=== PATIENT | male | born 1945 | race Caucasian/White ===

== ENCOUNTER 2017-11-03 08:18 | Inpatient (IN) | payer MEDICARE, OTHER ==
[2017-11-03] MEDS ORDERED: Labetalol HCl 100 MG/20 ML VIAL ONE (08:37)
[2017-11-03] MEDS ORDERED: Fentanyl 100 MCG/2 ML VIAL ONE (08:51)
[2017-11-03] MEDS ORDERED: niCARdipine 20MG in NaCl 200 ML BAG IVPB PRN (09:47)
[2017-11-03] MEDS ORDERED: Mag-Al 1200 mg/1200 mg/30 ML UDCUP PO PRN (09:47)
[2017-11-03] MEDS ORDERED: Milk Of Magnesia 30 ML UDCUP PO PRN (09:47)
[2017-11-03] MEDS ORDERED: Labetalol HCl 100 MG/20 ML VIAL SLOW IVP PRN (09:47)
[2017-11-03] MEDS ORDERED: Bisacodyl 10 MG SUPP PR PRN (09:47)
[2017-11-03] MEDS ORDERED: Acetaminophen 325 MG TAB PO PRN (09:47)
--- NOTE | 2017-11-03 09:50 | PRG ---
DATE OF SERVICE: 11/03/2017 Mr. Gonzalez is a 72-year-old gentleman that presented to an outside facility early in the morning wit h concerns for dizziness. In the several hours that followed, he became densely hemiparetic on the l eft side with slurred speech. 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 I consulted with the ER and advised t- PA administration. I also advised transfer to [facility] for mechanical thrombectomy. Upon arrival to the [facility] he went straight to the microbiology lab assistant. I examined him there prior to any procedure. He had a dense left hemiparesis and he was completely unable to speak. He could understand speech and follow commands. He had good strength on the right side. The patient underwen t angiography and we were moving forth with mechanical thrombectomy and subsequent injections reveale d a clearance of the basilar artery with filling of both posterior cerebral arteries and the left sup erior cerebellar artery. The plan will be admission to the ICU with stroke risk factor stratificatio n and likely inpatient rehab.
[2017-11-03] MEDS ORDERED: Artificial Tears 18 DROP/0.9 ML EA EYE PRN (10:49)
[2017-11-03] MEDS ORDERED: Eucerin (Mineral Oil/Petrolatum,White) 30 gm Jar TOP PRN (10:49)
[2017-11-03] MEDS ORDERED: Sodium Chloride 0.65% Nasal 44 ML BOT EA NARE PRN (10:49)
[2017-11-03] MEDS ORDERED: Chloraseptic Spray 180 ml Bottle PO PRN (10:49)
[2017-11-03] MEDS ORDERED: Ondansetron HCl/PF 4 MG/2 ML Vial IVP PRN (10:49)
[2017-11-03] MEDS ORDERED: Acetaminophen 650 MG Suppository PR PRN (10:49)
--- NOTE | 2017-11-03 11:24 | CON ---
DATE OF CONSULTATION: 11/03/2017 PRIMARY CARE PHYSICIAN: [facility] call admission. REASON FOR ADMISSION: Acute CVA status post tPA and JORGE procedure. HISTORY OF PRESENT ILLNESS: A 72-year-old male with a history of paroxysmal atrial fibrillation, hypertension, and dyslipidemia who was initially taken to [facility] last night around 10:30 p.m. with complaint of dizziness. The patient was completely fine. Around 10:00 p.m., he was feeling all of suddenly dizziness and had episode of vomiting. He was feeling everything was spinning. Symptoms were getting worse with movement. There was nothing relieving factor. Subsequently, he was taken to [facility] where he was observed. He had CT brain which was normal. He was hemodynamically stable and he did not have any obvious neurological deficit. There, he was given meclizine, IV fluid, Toradol 15 mg, Zofran 4 mg, aspirin 325 mg, and he was about to be discharged, but at that time, the patient's family member noticed that he was not moving his left side and he was having facial droop and that is why CT angiography was done. Stroke alert was initiated and CT angiography of head with IV contrast showed occlusion of the basilar artery. It is unclear whether this patient was given tPA at [facility] or not, but subsequently Dr. Juan Manuel Piña advised him to transfer to our hospital for mechanical thrombectomy. I am seeing this patient after mechanical thrombectomy. The patient is doing very well. Family member present at bedside and they report that his speech is little bit improved. His weakness on the left side is also improving. Currently, patient denies any headache. He feels uncomfortable in his left leg because of sheath. He denies any chest pain, palpitations or loss of consciousness. He denies any fever or chills. Patient lately had diarrhea and that is why he took Pepto-Bismol and after that he had black bowel movement yesterday. His diarrhea almost improved. He denies any UTI symptoms. He denies any flu-like symptoms. He denies any headache at this point. The patient had several years ago TIA type of symptoms. Patient also has paroxysmal atrial fibrillation and he is taking sotalol, but he is no longer taking any blood thinner medication. ALLERGIES: PENICILLIN and LATEX. CURRENT HOME MEDICATIONS: Flonase nasal spray b.i.d., cilostazol 100 mg p.o. daily, sotalol 80 mg 1.5 tablet twice daily, gabapentin 100 mg p.o. twice daily , lovastatin 20 mg p.o. at bedtime, triamterene/hydrochlorothiazide 37.5/25 one capsule p.o. daily, allopurinol 300 mg p.o. daily, hydroxyzine 25 mg p.o. at bedtime p.r.n., Protonix 40 mg p.o. daily. PAST MEDICAL HISTORY: History of TIA, dyslipidemia, hypertension, gastroesophageal reflux disease, gout, paroxysmal atrial fibrillation, and chronic low back pain. PAST SURGICAL HISTORY: Cataract surgery, but no major surgery. PAST PSYCHIATRIC HISTORY: Reviewed and negative. SOCIAL HISTORY: Patient is and lives at home. No history of tobacco, alcohol or illicit drug abuse. FAMILY HISTORY: No strong family history of premature coronary artery disease, stroke or cancer. EMERGENCY ROOM COURSE: [facility] record is completely reviewed. The patient had meclizine 25 mg p.o., IV fluid 2 liters, Toradol 15 mg, Zofran 4 mg, and aspirin 324 mg. REVIEW OF SYSTEMS: The following complete review of systems was negative, unless otherwise mentioned in the HPI or below: Constitutional: Weight loss or gain, ability to conduct usual activities. Skin: Rash, itching. Eyes: Double vision, pain. ENT/Mouth: Nose bleeding, neck stiffness, pain, tenderness. Cardiovascular: Palpitations, dyspnea on exertion, orthopnea. Respiratory: Shortness of breath, wheezing, cough, hemoptysis, fever or night sweats. Gastrointestinal: Poor appetite, abdominal pain, heartburn, nausea, vomiting, constipation, or diarrhea. Genitourinary: Urgency, frequency, dysuria, nocturia. Musculoskeletal: Pain, swelling. Neurologic/Psychiatric: Anxiety, depression. Allergy/Immunologic: Skin rash, bleeding tendency. Please see my HPI for pertinent positive and negative. All other review of systems reviewed and negative except as mentioned in the HPI. PHYSICAL EXAMINATION: VITAL SIGNS: Currently, pulse 56, blood pressure 161/72, respiratory rate 18, saturation 100% on 2 liter oxygen. GENERAL: Patient is currently alert, awake, no obvious acute distress. HEAD: Normocephalic, atraumatic. EYES: Pupils round, reactive to light. Extraocular muscles intact. ENT: Oropharynx within normal limits. Moist mucous membranes. No oral lesions. No pharyngeal erythema, no exudate. NECK: Supple, no JVD. Unable to elicit carotid bruit, no thyromegaly, no carotid bruits. LUNGS: Clear to auscultation without any rhonchi or rales. CARDIAC: S1, S2 regular. No murmur elicited, no gallop, no rub. ABDOMEN: Soft, bowel sounds present, nontender, and nondistended. No organomegaly, no mass, no suprapubic tenderness. BACK: Examination unremarkable, no CVA tenderness. EXTREMITIES: Upper extremity passive movement or joints are normal. Lower extremity passive movements of all joints are normal. No edema, good peripheral pulsation. SKIN: No skin rash. HEMATOLOGICAL SYSTEM: No lymphadenopathy. PSYCHIATRIC: Normal affect. NEUROLOGIC: Patient is currently moving right side upper and lower extremity without any problem and left upper and lower extremity he is also moving. Unfortunately, I am not able to do detailed neurological examination because of patient has sheath on left lower extremity, but his speech is still slurred. Plantar bilateral flexor. Sensation intact. Reflexes symmetrical. SIGNIFICANT LABORATORY DATA AND IMAGING DATA: Blood tests done at [facility]. WBC 12.8, hemoglobin 12.5, platelet 269. CMP: Sodium 139, potassium 4.7, chloride 103, carbon dioxide 28, anion gap 13, glucose 111, BUN 28, creatinine 1.4, protein 7.6, albumin 3.5. AST 31, ALT 27, and alkaline phosphatase 77. Serum osmolality 283. Urinalysis normal. Urine drug screen negative. Troponin 0.02. INR 1.0. Chest x-ray based on my review, no acute cardiopulmonary process. CT brain without contrast based on my review, no acute intracranial process. CT head angiography with contrast showing bibasilar artery occlusion. ASSESSMENT AND PLAN: 1. Acute cerebrovascular accident status post mechanical thrombectomy. The patient had dizziness. Subsequently left upper and lower extremity weakness with slurred speech and facial asymmetry and found with acute cerebrovascular accident. CT angiography of head confirmed occlusion of the basilar artery, status post mechanical thrombectomy. At this point, post-procedure, patient will require Intensive Care Unit admission. Entire Stroke team and Pulmonary team will be consulted. After 24 hours, we will start aspirin. We will continue Cardene drip for better blood pressure control. Lovenox will be started tomorrow for deep venous thrombosis prophylaxis. We will check MRI brain, echocardiography, carotid Doppler. We will check lipid profile, homocysteine. 2. Paroxysmal atrial fibrillation. Currently, patient is in sinus rhythm. The patient is on Betapace. We will resume his home medication while in hospital. We will monitor on telemetry floor. Echocardiography will be obtained. We will also check cardiac enzymes tomorrow. 3. Dyslipidemia. Check lipid profile tomorrow and continue lovastatin equivalent, Lipitor 10 mg p.o. at bedtime. 4. Hypertension. Currently, patient is on Cardene drip. We will use parenteral blood pressure medication including labetalol p.r.n. basis. 5. Allergic rhinitis. We will continue Flonase nasal spray twice daily as needed. 6. History of gout. Currently, patient is on allopurinol 300 mg p.o. daily. We will hold until the patient is cleared by speech. 7. Deep venous thrombosis prophylaxis, sequential compression device boots. 8. Gastrointestinal prophylaxis, Protonix 40 mg IV daily. 9. Code status: The patient is FULL CODE. The patient's is surrogate decision maker. Disposition plan based on clinical course. We are expecting patient's stay in the hospital more than 2 midnights. Plan of care discussed with the patient and family member at bedside in ICU. We will keep him n.p.o. until speech clears and then we will start diet as tolerated. Once the diet started then we will change to oral medication. Most likely within 24 hours, we will transfer him to the stroke floor and eventually he will need rehab placement. MOY
--- NOTE | 2017-11-03 12:25 | ULT ---
BILATERAL CAROTID DUPLEX ULTRASOUND: DATE: 11/03/17 HISTORY: CVA. TECHNIQUE: Branham scale ultrasound with color flow and spectral Doppler imaging of the extracranial carotid artery systems performed bilaterally. FINDINGS: A small amount of plaque is seen in the carotid bulbs. The peak systolic velocity in the right ICA measures 117 cm/second with a systolic ratio of 1.57. The peak systolic velocity in the left ICA measures 102 cm/second with a systolic ratio of 1.08. Flow in both vertebral arteries remains antegrade. IMPRESSION: No evidence of hemodynamically significant stenosis. POS: ÁNGEL
[2017-11-03] MEDS: Sodium Chloride 0.9% 1,000 ML IV SCH ×2 (12:27→21:12)
--- NOTE | 2017-11-03 13:23 | CCL ---
RADIOLOGY PROCEDURE NOTE: Date: 11/03/17 SURGEON: Carlitos Zambrano M.D. CREW TRUCK DRIVER: None. INDICATION: Ischemic stroke. PROCEDURE: Basilar artery occlusion. ANESTHESIA: Local. TECHNIQUE: The patient was brought into the angiogram suite and placed on the table in the supine position. Both groins were prepped and draped in the usual sterile fashion. 1% lidocaine was injected into the righ t groin. A 5 Fijian micropuncture set was then used to gain access to the right common femoral artery . Due to the tortuosity of the right-sided femoral vessel, we could not gain access to the aorta. We withdrew the 5 Fijian micropuncture set, applied pressure, and redirected our attention to the left groin where it was injected with 1% lidocaine. A 5 Fijian micropuncture set was used to gain access t o the left common femoral artery. Using the Seldinger technique, the needle was removed and an 8 Fren ch sheath was placed. An 8 Fijian concentric guide catheter was passed over a long 5 Fijian BIO Wellnessti c catheter, which was passed over an 0.035 angled Glidewire. We were able to access the left vertebra l artery, where AP and lateral angiogram revealed the presence of a mid to distal basilar artery occl usion. A Trevo device and microcatheter and microguidewire were then loaded through the guide cathet er and placed within the basilar artery. A subsequent injection revealed resolution of the basilar oc clusion with distal filling of both posterior cerebral arteries as well as the left superior cerebell ar artery. All catheters were then removed. Hemostasis was maintained with pressure on the right leander in and the catheter was sewn in on the left. The procedure came to an end without complication.
--- NOTE | 2017-11-03 14:05 | CON ---
DATE OF CONSULTATION: 11/03/2017 He is a 72-year-old gentleman who was brought in from [facility] after he sustained weakness this morning. He earlier had had some dizziness and weakness of the left side. They contacted Dr. Zambrano, who felt he was having acute cerebrovascular accident and recommended giving him t-PA and gordon sfer to [facility]. He has undergone an emergency cath by Dr. Zambrano. Please review his note, but apparently at the time of angiography his basilar artery looked good with both posterior cerebral arteries, the left superio r cerebral artery good perfusion. He was noted to have initially a dense left hemiparesis with slurred speech to which he has had some improvement. His is at the bedside to which we are getting adequate history, who states that th e patient does not smoke, does not drink. He has had a previous cerebrovascular accident. PAST MEDICAL HISTORY: History of previous transient ischemic attack, dyslipidemia, hypertension, atr ial fibrillation, coronary artery disease. He sees a electrolysis engineer at [facility]. PAST SURGICAL HISTORY: Cataracts. SOCIAL/FAMILY HISTORY: Otherwise unremarkable. REVIEW OF SYSTEMS: Ten point negative. PHYSICAL EXAMINATION: GENERAL: Awake, alert, responsive. VITAL SIGNS: Blood pressure is slightly elevated at 171/70, his sats are 100%, pulse 70, respiratory 18. CHEST: Chest revealed decreased breath sounds. No wheezing. CARDIAC: Normal S1, S2. No gallops. ABDOMEN: Soft, no masses. LABORATORY: White count 9,000, H&H 13 and 40. Chemistry profile shows BUN and creatinine are normal . Blood sugar was 95. Thyroid function normal. IMPRESSION: 1. Cerebrovascular accident, emergency angiography. 2. Left-sided weakness, improving. 3. Previous transient ischemic attack. 4. Coronary artery disease. PLAN: I agree with aspirin and supportive care. Blood pressure control as per Neurosurgery. I will follow while in the ICU. At this stage I reviewed all of the x-rays and reports personally including the imaging studies and r eport. Nothing additional to offer. PT and supportive care. This is a consultation note 70 minutes, of which 50% of the time was spent at the bedside with direct patient care. Incidentally to note the patient's home medication includes Cilostazol 100 mg, Sotalol 80 mg tablet, gabapentin 100, lovastatin 20, triamterene, and allopurinol.
[2017-11-03] MEDS ORDERED: Prevnar 13-Val Conj/PF 0.5 ML SYRINGE IM ONE (15:15)
[2017-11-03] MEDS ORDERED: Iopamidol 370 76% 50 ML VIAL FS ONE (17:03)
[2017-11-03] MEDS ORDERED: Iopamidol 370 76% 100 ML VIAL ONE (17:03)
[2017-11-04 03:56] LABS: #Basophils 0.1 thou/uL (0.0-0.2); #Eosinphils 0.2 thou/uL (0.0-0.7); #Lymphocytes 1.9 thou/uL (1.20-3.40); #Monocytes 1.4 thou/uL (0.11-0.59); #Neutrophils 10.4 thou/uL (1.40-6.50); %Basophils 0.4 % (0.0-1.0); %Eosinophils 1.5 % (0.0-10.0); %Lymphocytes 13.6 % (21.0-51.0); %Monocytes 9.9 % (0.0-10.0); %Neutrophils 74.6 % (42.0-75.0); Hemoglobin 11.7 g/dL (14.0-18.0); Mean Corpuscular HGB CONC 32.2 g/dL (32.0-36.0); Mean Corpuscular Hemoglobin 30.5 pg (27.0-31.0); Mean Corpuscular Volume 94.7 fl (80.0-94.0); Mean Platelet Volume 8.7 fL (7.4-10.4); Platelet Count 196 thou/uL (130-400); RBC Distribution Width 15.6 % (11.5-14.5); Red Blood Cell (RBC) Count 3.84 mill/uL (4.70-6.10)
[2017-11-04 04:02] LABS: INR-International Normal Ratio 1.2; PTT 26.9 SEC (22.9-36.1); Prothrombin Time 15.5 SEC (12.0-14.7)
[2017-11-04 04:11] LABS: ALT (SGPT) 31 U/L (8-55); AST (SGOT) 48 U/L (5-34); Albumin 3.4 g/dL (3.4-4.8); Alkaline Phosphatase 68 U/L (40-150); Anion Gap 12 mmol/L (10-20); BUN (Urea Nitrogen) 18 mg/dL (8.4-25.7); Bilirubin, Total 0.9 mg/dL (0.2-1.2); Calc. Creatinine Clearance 74 mL/min (70-130); Calcium 8.8 mg/dL (7.8-10.44); Carbon Dioxide 23 mmol/L (23-31); Cardiac Risk 3.4 (Less than 4.5); Chloride 111 mmol/L (98-107); Cholesterol 133 mg/dl (< 200 Desired); Estimated GFR-MDRD 74; Globulin 2.9 g/dL (2.4-3.5); Glucose 77 mg/dL (80-115); HDL Cholesterol 39 mg/dL (>60 Neg Risk); LDL Cholesterol, Calculated 69 mg/dL; Potassium 4.2 mmol/L (3.5-5.1); Protein, Total 6.3 g/dL (5.8-8.1); Sodium 142 mmol/L (136-145); Triglycerides 124 mg/dL (Less than 150)
--- NOTE | 2017-11-04 09:28 | CT ---
PRELIMINARY REPORT/[facility]/EMERGENCY AFTER HOURS PROCEDURE: EXAM: CT Head Without Intravenous Contrast CLINICAL HISTORY: 72 years old, male; Condition or disease; Other: CVA; Patient HX: Eval for CVA TECHNIQUE: Axial computed tomography images of the head/brain without intravenous contrast. COMPARISON: No relevant prior studies available. FINDINGS: No definite acute skull fracture. Included paranasal sinuses are essentially clear. No acute intracranial hemorrhage or mass effect. Ventricle size is normal for age. No definite acute infarct by CT. MRI could be more sensitive/specific for an acute infarct if clinically indicated. IMPRESSION: No acute intracranial bleed or mass effect. No definite acute infarct by CT, see above. Thank you for allowing us to participate in the care of your patient. Dictated and Authenticated by: John Franz MD 11/04/2017 4:33 AM Central Time ([place] & [place]) FINAL REPORT EMERGENCY AFTER HOURS NONCONTRAST CT HEAD: Date: 11/04/17 HISTORY: CVA. COMPARISON: None available. IMPRESSION: 1. No acute intracranial abnormalities demonstrated. 2. Minimal chronic small vessel ischemic changes. 3. Mild cerebral volume loss. 4. Mild sinus disease. Findings are in agreement with the preliminary report by Amadou. POS: ÁNGEL
[2017-11-04] MEDS: Enoxaparin Sodium 30 MG/0.3 ML SYRINGE SC SCH (10:11)
[2017-11-04] MEDS: Pantoprazole 40 MG VIAL IVP SCH (10:18)
[2017-11-04] MEDS: Sodium Chloride 0.9% 1,000 ML IV SCH ×2 (11:23→21:21)
--- NOTE | 2017-11-04 11:57 | PRG ---
DATE OF SERVICE: 11/04/2017 SUBJECTIVE: Al Gonzalez is awake, alert, responsive. PHYSICAL EXAMINATION: VITAL SIGNS: Blood pressure is slightly elevated at 131/58, pulse 60, respiratory rate 18. NEUROLOGIC: His weakness on his right side improved somewhat. CHEST: Decreased breath sounds, no wheezing. CARDIAC: Normal S1, S2, no gallops. ABDOMEN: Soft. ASSESSMENT: Acute cerebrovascular accident. Emergency tPA. PLAN: Continue PT and supportive care. Blood pressure control is outlined. Continue home medication. We will follow while in the ICU.
--- NOTE | 2017-11-04 13:04 | MRI ---
MRI BRAIN NONCONTRAST: DATE: 11/04/17 TIME: 1103 HOURS HISTORY: 72-year-old male with acute CVA: Stroke, basilar artery occlusion. COMPARISON: No prior MRI's of brain. FINDINGS: There are several small foci of strongly restricted diffusion, representing acute infarctions, in the following locations: 1.5 x 1 cm lesion at the posterior aspect of the left cerebellar hemisphere, 0 .8 x 0.5 cm small lesion at the superior anterior aspect of the left cerebellar hemisphere near the t entorium, 1 x 1 cm lesion in the anteromedial aspect of the right thalamus, adjacent 1.5 x 0.5 cm les ion more posterolaterally in the right thalamus, and 1.5 x 0.3 cm thin strip in right occipital primo x close to the right lateral ventricle. In addition, there is heterogeneous, widely distributed, mildly restricted diffusion at the upper hayley s, near the pontomesencephalic junction. All of these lesions are associated with moderately hyperintense T2 signal (best visualized on the FL AIR sequence). There are numerous tiny foci of T2 hyperintensity in the arellano radiata and centrum semiovale, consis tent with mild chronic ischemic white matter changes due to microvascular atherosclerosis. Flow-voids are grossly maintained in the major arteries of the [place] of [place], including the basilar artery. There is no evidence of recent or remote intra-axial hemorrhage. No mass effect, midline shift, or ex tra-axial fluid collection. Mild to moderate dilation of lateral and third ventricles, probably due t o diffuse brain parenchymal volume loss, not unusual for age. No extra-axial fluid collection. IMPRESSION: 1. Multiple foci of small acute or subacute infarctions in posterior circulation territory, includin g brainstem (upper jian), left cerebellum, right thalamus, and right occipital lobe. 2. No acute hemorrhage or mass effect. MOSHE Paulson POS: ÁNGEL
[2017-11-04] MEDS: Amiodarone HCl 450 MG, Admixture Fee 1 EACH in Dextrose 5% in Water 250 ML IVPB SCH ×6 (13:15→21:22)
--- NOTE | 2017-11-04 15:17 | CON ---
DATE OF CONSULTATION: 11/04/2017 NEUROLOGY CONSULTATION CONSULTING PHYSICIAN: Hospitalist Service. IMPRESSION: 1. Multifocal posterior circulation infarct with remarkably good recovery. 2. Hypertension. 3. History of cardiac arrhythmia. 4. Aspirin failure. PLAN: 1. Add Plavix. 2. PT and OT evaluations and decide whether rehab transfer is necessary. Mr. Gonzalez is a 72-year-old gentleman with the above noted medical history. He developed acute onse t of headache, vertigo and left-sided weakness after being evaluated at the [facility]. He was subsequently brought to the [facility] where he was evaluated by Dr. Zambrano and underwent cat heterization. He now is back in the ICU and is recovering. He reports there is slight headache and only minimal dizziness at this point. Denies any feelings of lateralized weakness or numbness. He h as been in normal sinus rhythm. His MRI of the brain showed areas of acute ischemia involving the le ft cerebellum, pontine region, right thalamus and right occipital lobe. Carotid ultrasound did not s how any extracranial stenosis. His echocardiogram showed a normal ejection fraction. Patient had be en taking a cholesterol medication and aspirin prior to this event. PAST MEDICAL HISTORY: As listed above. ALLERGIES: None reported. SOCIAL HISTORY: No tobacco use. FAMILY HISTORY: Noncontributory. REVIEW OF SYSTEMS: Positive for gait instability and numbness of the feet. PHYSICAL EXAMINATION: GENERAL: He is a well-nourished elderly gentleman lying in bed in no distress. VITAL SIGNS: Pulse 128, blood pressure 126/81, saturation 93%. HEENT: Pupils equal and reactive. Conjunctivae clear. Oropharynx clear. Cranium is normocephalic, atraumatic. NECK: Supple. EXTREMITIES: No cyanosis or edema. NEUROLOGIC: He is alert and cooperative. His speech is fluent and clear. Cranial nerve exam did no t show any asymmetries or significant nystagmus. Motor exam showed equal recycling worker strength. His finger to nose movements were fairly smooth with only slight dysmetria on the left. Gait was not testable. Plantar responses were downgoing. Sensation was subjectively intact to light touch. SUMMARY: This is a 72-year-old gentleman with multifocal ischemic injury in the posterior circulatio n. He is doing remarkably well. Would add Plavix for his long-term management and can be assessed f or possible rehabilitation.
[2017-11-04] MEDS: Aspirin 325 mg Enteric Coated Tablet PO SCH (17:19)
[2017-11-04] MEDS: Aspirin 300 MG Suppository PR SCH (18:01)
--- NOTE | 2017-11-04 18:13 | CON ---
DATE OF CONSULTATION: 11/04/2017 CARDIOLOGY CONSULTATION REASON FOR CONSULTATION: AFib, RVR. HISTORY OF PRESENT ILLNESS: Mr. Gonzalez is a pleasant 72-year-old gentleman who comes to the ospital for stroke. He went to the [facility] and he was diagnosed with an acute CVA. He was given tPA and transferred over to [facility] for stroke alert. 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 He was brought into the catheterization lab immediately after tra nsferring. Dr. Zambrano took images of the basilar artery and it showed clearance of the artery with fi lling of both posterior cerebral arteries and left superior cerebellar artery. He was transferred to the ICU. He has a history of paroxysmal atrial fibrillation. He had been on blood thinners for sev eral years, about 2-1/2 years and about 5 or 6 months ago this was discontinued. I am not sure if th is was due to cost. He was followed by Dr. Siegel at that time. Currently, he is in the ICU recover ing. He had his sheath pulled recently from the left groin and he now converted into atrial fibrilla tion with rapid ventricular response, heart rate in the 160s, so Cardiology has been consulted for th is. PAST MEDICAL HISTORY: 1. Previous TIAs in the past. 2. Hyperlipidemia. 3. Hypertension. 4. Paroxysmal atrial fibrillation. 5. Coronary artery disease. Unclear to what extent. 6. Gout. 7. Gastroesophageal reflux disease. 8. Chronic low back pain. PAST SURGICAL HISTORY: Cataract surgery. SOCIAL HISTORY: No alcohol, tobacco or drugs. FAMILY HISTORY: Noncontributory. REVIEW OF SYSTEMS: A 12-point review of systems was done and it is all negative unless stated in the history of present illness. OUTPATIENT MEDICATIONS: Include, 1. Flonase. 2. Cilostazol. 3. Sotalol 80 mg 1-1/2 tablets b.i.d. 4. Gabapentin 100 mg twice a day. 5. Lovastatin 20 mg p.o. daily. 6. Triamterene/hydrochlorothiazide 37.5/25 daily. 7. Allopurinol. 8. Hydroxyzine. 9. Protonix. PHYSICAL EXAMINATION: VITAL SIGNS: Temperature 100.1, pulse 85-160, satting 96% on 2 liters, blood pressure 127/78. GENERAL: Awake, alert, difficult to assess orientation due to difficulty with speech, in no distress . HEENT: Normocephalic, atraumatic. NECK: Supple. LUNGS: Clear. CARDIOVASCULAR: Irregular, irregular. Heart rate in the 120s on my evaluation. ABDOMEN: Soft, positive bowel sounds. EXTREMITIES: Trace edema. SKIN: Warm and dry. LABORATORY WORK: Shows a white count of 14, hemoglobin of 11, hematocrit of 36, platelet count of 19 6. Coags were reviewed. Chemistries were reviewed, which are normal. Triglycerides of 124, cholest josie total of 133, LDL of 69, HDL of 39. Homocysteine level of 7.5. EKG was reviewed, AFib with RVR. ASSESSMENT AND PLAN: 1. Acute posterior circulation cerebrovascular accident. 2. Paroxysmal atrial fibrillation, currently in rapid ventricular response. 3. Normal left ventricular function. 4. Grade I diastolic dysfunction. PLAN: 1. Given his history of atrial fibrillation, TIAs and now with an acute CVA, we have to assume that this is an embolic stroke. I would recommend full anticoagulation with either warfarin or any of the new NOACs. I will discuss with Neurosurgery as well as Neurology as to the timing of this as he had tPA recently and he has an acute event. His CHADS-VASc score would be 4 given his stroke, hypertens ion and age. 2. We will start him on amiodarone drip to rate control his atrial fibrillation. 3. Would stop Plavix if we were to start full anticoagulation. Thank you for letting us to participate in the care of your patient. We will continue to follow.
--- NOTE | 2017-11-04 20:58 | PDOC.PN ---
- Subjective Encounter Start Date: 11/04/17 Encounter Start Time: 12:00 Patient gone for MRI. - Objective Resuscitation Status: Resuscitation Status FULL:Full Resuscitation MAR Reviewed: Yes Vital Signs & Weight: Vital Signs (12 hours) Temp 11/04/17 16:00 100.1 F H 11/04/17 12:00 99.8 F H Weight Admit Weight 167 lb Weight 167 lb 5.294 oz Most Recent Monitor Data Heart Rate from ECG 81 NIBP 128/78 NIBP BP-Mean 92 Respiration from ECG 31 SpO2 96 I&O: 11/03/17 11/04/17 11/05/17 06:59 06:59 06:59 Intake Total 1644 951 Output Total 1335 871 Balance 309 80 Result Diagrams: 11/04/17 03:42 11/04/17 03:42 EKG Reviewed by me: Yes (Afib) Dx/Plan - Plan DVT proph w/lovenox, DVT proph w/SCDs IMPRESSION: 1. Post circulation CVA s/p TPA 2. HTN 3. Par Afib 4. Dyslipidemia 5. GERD PLAN: * Await MRI. * Consult Cardio/Neuro * AM labs * Cont to monitor Review of Systems - Medications/Allergies Allergies/Adverse Reactions: Allergies Allergy/AdvReac Type Severity Reaction Status Date / Time No Known Allergies Allergy Verified 11/03/17 18:19 Medications: Current Medications Acetaminophen (Tylenol) 650 mg PO Q6H PRN PRN Reason: Headache/Fever or Mild Pain Acetaminophen (Tylenol) 650 mg [place] Q4H PRN PRN Reason: Headache/Fever or Mild Pain Al Hydroxide/Mg Hydroxide (Maalox) 30 ml PO QIDPRN PRN PRN Reason: Dyspepsia Artificial Tears (Tears Naturale) 0 drop EA EYE PRN PRN PRN Reason: Dry Eyes Aspirin (Ecotrin) 325 mg PO DAILY [facility] Last Admin: 11/04/17 17:19 Dose: Not Given Aspirin (Aspirin) 300 mg [place] DAILY [facility] Last Admin: 11/04/17 18:01 Dose: 300 mg Bisacodyl (Dulcolax) 10 mg [place] DAILYPRN PRN PRN Reason: Constipation Enoxaparin Sodium (Lovenox) 30 mg SC 0900 [facility] Last Admin: 11/04/17 10:11 Dose: 30 mg Sodium Chloride (Normal Saline 0.9%) 1,000 mls @ 80 mls/hr IV .[id number] [facility] Last Admin: 11/04/17 11:23 Dose: 1,000 mls Amiodarone HCl 450 mg/Miscellaneous Medication 1 each/ Dextrose/Water 259 mls @ 0 mls/hr IVPB INF [place]; As Directed PRN Reason: Protocol Last Admin: 11/04/17 13:15 Dose: 259 mls Labetalol HCl (Normodyne) 10 mg SLOW IVP Q2H PRN PRN Reason: SBP > 180 Last Admin: 11/04/17 10:12 Dose: 10 mg Magnesium Hydroxide (Milk Of Magnesium) 30 ml PO BIDPRN PRN PRN Reason: Constipation Mineral Oil/White Petrolatum (Eucerin Cream) 0 gm TOP BIDPRN PRN PRN Reason: Dry Skin Morphine Sulfate (Morphine) 1 mg SLOW IVP Q2H PRN PRN Reason: Moderate Pain (4-6) Morphine Sulfate (Morphine) 2 mg SLOW IVP Q2H PRN PRN Reason: Severe Pain (7-10) Last Admin: 11/03/17 12:48 Dose: 2 mg Nicardipine/Sodium Chloride (Cardene) 0 mg IVPB INF PRN; Protocol PRN Reason: SBP > 180 mmHg Ondansetron HCl (Zofran) 4 mg IVP Q6H PRN PRN Reason: Nausea/Vomiting Pantoprazole Sodium (Protonix) 40 mg IVP DAILY [facility] Last Admin: 11/04/17 10:18 Dose: 40 mg Phenol (Chloraseptic [place] 180 Ml Bot) 0 ml PO PRN PRN PRN Reason: Sore Throat Sodium Chloride ([place] Nasal [place] 0.65%) 0 ml EA NARE QIDPRN PRN PRN Reason: Nasal Congestion
[2017-11-05] MEDS: Aspirin 325 mg Enteric Coated Tablet PO SCH (07:58)
[2017-11-05] MEDS: Pantoprazole 40 MG VIAL IVP SCH (09:11)
[2017-11-05] MEDS: Aspirin 300 MG Suppository PR SCH (09:11)
[2017-11-05] MEDS: Amiodarone HCl 450 MG, Admixture Fee 1 EACH in Dextrose 5% in Water 250 ML IVPB SCH ×3 (09:14)
[2017-11-05] MEDS: Enoxaparin Sodium 30 MG/0.3 ML SYRINGE SC SCH (09:16)
[2017-11-05] MEDS ORDERED: Artificial Tears 18 DROP/0.9 ML EA EYE PRN (11:38)
[2017-11-05] MEDS: Sodium Chloride 0.9% 1,000 ML IV SCH (11:59)
--- NOTE | 2017-11-05 12:43 | PDOC.CTH ---
Cardiology Progress Note - Subjective No new issues or concern. - Objective Vital Signs Temp Pulse Resp Pulse Ox 11/05/17 07:31 98 F 65 23 H 95 11/05/17 07:00 98.3 F 11/05/17 06:59 97 11/05/17 03:00 98 F Admit Weight 167 lb Weight 169 lb 8.568 oz 11/04/17 11/05/17 11/06/17 06:59 06:59 06:59 Intake Total 1644 2251 Output Total 1335 1581 345 Balance 309 670 -345 - Physical Examination General/Neuro: alert & oriented x3, NAD Neck: no JVD present Lungs: CTA, unlabored respirations Heart: other: (Irreg HR 70's. ) Abdomen: NT/ND Extremities: + edema B (1+) - Telemetry Telemetry Rhythm: Afib HR 60-80 - Labs Result Diagrams: 11/04/17 03:42 11/04/17 03:42 - Assessment/Plan 1. Afib RVR, rate controlled. 2. Acute CVA, embolic most likely. PLAN: - I spoe with Dr. Lima and he agrees to start full anticoagulation now. - Will start this afternoon with full dose Lovenox and if he tolerated this will put him on Eliquis terminologist on discharge. - Continue amiodarone drip for now.
--- NOTE | 2017-11-05 16:42 | PRG ---
DATE OF SERVICE: 11/05/2017 Mr. Gonzalez reports he is feeling well today. He has no complaints of headache, nausea, vomiting, di zziness, double vision, lateralized weakness or numbness. PHYSICAL EXAMINATION: He is alert and cooperative. The nurse reports that occasionally he seems to get confused about dislocation, but otherwise has done well through the night. His exam was nonfocal . LABORATORY STUDIES: EKG shows atrial flutter. Given the atrial flutter, I would agree that anticoagulation is needed late this choice up to Cardiol ogahmet.
--- NOTE | 2017-11-05 18:15 | PRG ---
DATE OF SERVICE: 11/05/2017 SUBJECTIVE: This morning, he is awake, alert, and responsive. He is gaining more strength in both u pper extremities. Nurse noted that he was having bouts of apnea at nighttime. An MRI done yesterday shows multiple foci of small acute, subacute infarct in the posterior circulati on including brainstem (upper jian), left cerebellum, right thalamus, and right occipital lobe. OBJECTIVE: VITAL SIGNS: Blood pressure 148/71, sats 90%, respiratory rate 18. CHEST: No wheezing. CARDIAC: Normal S1, S2. No gallops. ABDOMEN: Soft, no masses. LABORATORY DATA: No lab was done today. IMPRESSION: 1. Posterior circulation myocardial infarction with a posterior circulation cerebrovascular accident , left-sided weakness slowly improving. 2. Possibly sleep apnea. 3. Hypertension. PLAN: Continue PT and supportive care. We will follow while in the MICU.
--- NOTE | 2017-11-05 21:30 | PDOC.PN ---
- Subjective Encounter Start Date: 11/05/17 Encounter Start Time: 14:00 Patient seen and examined. No new complaints. No overnight events. No new focal findings - Objective Resuscitation Status: Resuscitation Status FULL:Full Resuscitation MAR Reviewed: Yes Vital Signs & Weight: Vital Signs (12 hours) Temp Pulse Pulse Pulse Resp BP BP 11/05/17 16:06 99.5 F 78 20 11/05/17 12:00 98.3 F 11/05/17 11:05 69 72 154/81 H 138/75 BP Pulse Ox Pulse Ox Pulse Ox 11/05/17 16:06 176/100 H 96 11/05/17 12:00 11/05/17 11:05 97 98 Weight Admit Weight 167 lb Weight 169 lb 8.568 oz Most Recent Monitor Data Heart Rate from ECG 78 NIBP 153/86 NIBP BP-Mean 98 Respiration from ECG 30 SpO2 96 I&O: 11/04/17 11/05/17 11/06/17 06:59 06:59 06:59 Intake Total 1644 2251 1385 Output Total 1335 1581 950 Balance 309 670 435 Result Diagrams: 11/04/17 03:42 11/04/17 03:42 Additional Labs: Accuchecks 11/05/17 11/05/17 11/05/17 12:49 06:07 00:30 POC Glucose 93 76 85 EKG Reviewed by me: Yes (Afib) Phys Exam - Physical Examination Constitutional: NAD Cardiovascular: irregular Dx/Plan - Plan DVT proph w/SCDs IMPRESSION: 1. Post circulation CVA s/p TPA 2. HTN 3. Par Afib with RVR - on Amiodarone drip 4. Dyslipidemia 5. GERD PLAN: * Cardiology/Neuro following * Started on Anticoag Review of Systems - Review of Systems Cardiovascular: negative: chest pain, palpitations, orthopnea, paroxysmal nocturnal dyspnea, edema, light headedness - Medications/Allergies Allergies/Adverse Reactions: Allergies Allergy/AdvReac Type Severity Reaction Status Date / Time No Known Allergies Allergy Verified 11/03/17 18:19 Medications: Current Medications Acetaminophen (Tylenol) 650 mg PO Q6H PRN PRN Reason: Headache/Fever or Mild Pain Acetaminophen (Tylenol) 650 mg ND Q4H PRN PRN Reason: Headache/Fever or Mild Pain Al Hydroxide/Mg Hydroxide (Maalox) 30 ml PO QIDPRN PRN PRN Reason: Dyspepsia Artificial Tears (Tears Naturale) 0 drop EA EYE PRN PRN PRN Reason: Dry Eyes Aspirin (Ecotrin) 325 mg PO DAILY [facility] Last Admin: 11/05/17 07:58 Dose: Not Given Aspirin (Aspirin) 300 mg ND DAILY [facility] Last Admin: 11/05/17 09:11 Dose: 300 mg Bisacodyl (Dulcolax) 10 mg ND DAILYPRN PRN PRN Reason: Constipation Enoxaparin Sodium (Lovenox) 80 mg SC 0900,2100 [facility] Sodium Chloride (Normal Saline 0.9%) 1,000 mls @ 80 mls/hr IV .[id number] [facility] Last Admin: 11/05/17 11:59 Dose: 1,000 mls Amiodarone HCl 450 mg/Miscellaneous Medication 1 each/ Dextrose/Water 259 mls @ 0 mls/hr IVPB INF [place]; As Directed PRN Reason: Protocol Last Admin: 11/05/17 09:14 Dose: 259 mls Labetalol HCl (Normodyne) 10 mg SLOW IVP Q2H PRN PRN Reason: SBP > 180 Last Admin: 11/04/17 10:12 Dose: 10 mg Magnesium Hydroxide (Milk Of Magnesium) 30 ml PO BIDPRN PRN PRN Reason: Constipation Mineral Oil/White Petrolatum (Eucerin Cream) 0 gm TOP BIDPRN PRN PRN Reason: Dry Skin Morphine Sulfate (Morphine) 1 mg SLOW IVP Q2H PRN PRN Reason: Moderate Pain (4-6) Morphine Sulfate (Morphine) 2 mg SLOW IVP Q2H PRN PRN Reason: Severe Pain (7-10) Last Admin: 11/03/17 12:48 Dose: 2 mg Nicardipine/Sodium Chloride (Cardene) 0 mg IVPB INF PRN; Protocol PRN Reason: SBP > 180 mmHg Ondansetron HCl (Zofran) 4 mg IVP Q6H PRN PRN Reason: Nausea/Vomiting Pantoprazole Sodium (Protonix) 40 mg IVP DAILY [facility] Last Admin: 11/05/17 09:11 Dose: 40 mg Phenol (Chloraseptic [place] 180 Ml Bot) 0 ml PO PRN PRN PRN Reason: Sore Throat Sodium Chloride ([place] Nasal [place] 0.65%) 0 ml EA NARE QIDPRN PRN PRN Reason: Nasal Congestion
[2017-11-05] MEDS: Enoxaparin Sodium 80 MG/0.8 ML SYRINGE SC SCH (21:34)
[2017-11-06] MEDS: Sodium Chloride 0.9% 1,000 ML IV SCH ×2 (01:11→12:24)
[2017-11-06] MEDS: Amiodarone HCl 450 MG, Admixture Fee 1 EACH in Dextrose 5% in Water 250 ML IVPB SCH ×3 (04:55)
[2017-11-06 05:54] LABS: Hemoglobin 11.8 g/dL (14.0-18.0); Platelet Count 189 thou/uL (130-400)
[2017-11-06 05:55] LABS: #Eosinphils 0.6 thou/uL (0.0-0.7); #Lymphocytes 2.4 thou/uL (1.20-3.40); #Monocytes 1.4 thou/uL (0.11-0.59); %Basophils 0.3 % (0.0-1.0); %Eosinophils 3.9 % (0.0-10.0); %Lymphocytes 16.4 % (21.0-51.0); %Monocytes 9.9 % (0.0-10.0); %Neutrophils 69.4 % (42.0-75.0); Hemoglobin 11.7 g/dL (14.0-18.0); Mean Corpuscular HGB CONC 32.4 g/dL (32.0-36.0); Mean Corpuscular Hemoglobin 30.3 pg (27.0-31.0); Mean Corpuscular Volume 93.5 fl (80.0-94.0); Mean Platelet Volume 8.6 fL (7.4-10.4); Platelet Count 189 thou/uL (130-400); RBC Distribution Width 15.5 % (11.5-14.5); Red Blood Cell (RBC) Count 3.87 mill/uL (4.70-6.10); White Blood Cell (WBC) Count 14.4 thou/uL (4.8-10.8)
[2017-11-06 06:05] LABS: Anion Gap 11 mmol/L (10-20); BUN (Urea Nitrogen) 12 mg/dL (8.4-25.7); Calc. Creatinine Clearance 87 mL/min (70-130); Calcium 8.6 mg/dL (7.8-10.44); Carbon Dioxide 21 mmol/L (23-31); Chloride 106 mmol/L (98-107); Estimated GFR-MDRD 88; Glucose 89 mg/dL (80-115); Potassium 3.7 mmol/L (3.5-5.1); Sodium 134 mmol/L (136-145)
[2017-11-06 06:36] LABS: Folate (Folic Acid) 15.1 ng/mL (7.0-31.4)
[2017-11-06] MEDS: Aspirin 81 mg Enteric Coated Tablet PO SCH (10:29)
[2017-11-06] MEDS: Allopurinol 300 MG TAB PO SCH (10:29)
[2017-11-06] MEDS: Enoxaparin Sodium 80 MG/0.8 ML SYRINGE SC SCH ×2 (10:30→21:21)
--- NOTE | 2017-11-06 13:53 | RAD ---
MODIFIED BARIUM SWALLOW IN THE PRESENCE OF SPEECH THERAPIST: Date: 11/06/17 HISTORY: 72-year-old male with dysphagia following cerebral infarction, feeding difficulties. FINDINGS/IMPRESSION: There is laryngeal penetration and aspiration. There is mild residua in the piriform sinuses and vall ecula. Please see recommendations of the speech therapist for further management. POS: ÁNGEL
[2017-11-06] MEDS ORDERED: Amiodarone 200 MG TAB PO SCH (17:00)
--- NOTE | 2017-11-06 20:51 | PDOC.PN ---
- Subjective Encounter Start Date: 11/06/17 Encounter Start Time: 13:00 Patient seen and examined. No new complaints. No overnight events. No new focal deficits. Working with PT - Objective Resuscitation Status: Resuscitation Status FULL:Full Resuscitation MAR Reviewed: Yes Vital Signs & Weight: Vital Signs (12 hours) Temp Pulse Pulse Pulse Resp BP BP 11/06/17 15:43 99.1 F 73 16 11/06/17 14:31 97 84 162/98 H 158/82 H BP Pulse Ox 11/06/17 15:43 136/82 96 11/06/17 14:31 Weight Admit Weight 167 lb Weight 169 lb 4.8 oz Most Recent Monitor Data Heart Rate from ECG 78 NIBP 153/86 NIBP BP-Mean 98 Respiration from ECG 30 SpO2 96 I&O: 11/05/17 11/06/17 11/07/17 06:59 06:59 06:59 Intake Total 2251 2295 Output Total 1581 1440 350 Balance 670 855 -350 Result Diagrams: 11/06/17 05:12 11/06/17 05:12 Additional Labs: Accuchecks 11/06/17 16:49 POC Glucose 106 EKG Reviewed by me: Yes (Afib) Dx/Plan - Plan IMPRESSION: 1. Post circulation CVA s/p TPA 2. HTN 3. Par Afib with RVR - on Amiodarone drip/Anticoag started 4. Dyslipidemia 5. GERD PLAN: * Cardiology/Neuro following * Started on Anticoag/Amiodarone Review of Systems - Medications/Allergies Allergies/Adverse Reactions: Allergies Allergy/AdvReac Type Severity Reaction Status Date / Time No Known Allergies Allergy Verified 11/03/17 18:19 Medications: Current Medications Acetaminophen (Tylenol) 650 mg PO Q6H PRN PRN Reason: Headache/Fever or Mild Pain Acetaminophen (Tylenol) 650 mg [place] Q4H PRN PRN Reason: Headache/Fever or Mild Pain Al Hydroxide/Mg Hydroxide (Maalox) 30 ml PO QIDPRN PRN PRN Reason: Dyspepsia Allopurinol (Zyloprim) 300 mg PO DAILY [facility] Last Admin: 11/06/17 10:29 Dose: 300 mg Amiodarone HCl (Cordarone) 400 mg PO BID [facility] Artificial Tears (Tears Naturale) 0 drop EA EYE PRN PRN PRN Reason: Dry Eyes Aspirin (Ecotrin) 81 mg PO DAILY [facility] Last Admin: 11/06/17 10:29 Dose: 81 mg Atorvastatin Calcium (Lipitor) 10 mg PO HS [facility] Bisacodyl (Dulcolax) 10 mg RI DAILYPRN PRN PRN Reason: Constipation Enoxaparin Sodium (Lovenox) 80 mg SC 0900,2100 [facility] Last Admin: 11/06/17 10:30 Dose: 80 mg HCTZ/Losartan Potassium (Hyzaar 50/12.5) 1 tab PO DAILY [facility] Labetalol HCl (Normodyne) 10 mg SLOW IVP Q2H PRN PRN Reason: SBP > 180 Last Admin: 11/04/17 10:12 Dose: 10 mg Magnesium Hydroxide (Milk Of Magnesium) 30 ml PO BIDPRN PRN PRN Reason: Constipation Mineral Oil/White Petrolatum (Eucerin Cream) 0 gm TOP BIDPRN PRN PRN Reason: Dry Skin Ondansetron HCl (Zofran) 4 mg IVP Q6H PRN PRN Reason: Nausea/Vomiting Pantoprazole Sodium (Protonix) 40 mg PO DAILY [facility] Last Admin: 11/06/17 10:30 Dose: 40 mg Phenol (Chloraseptic [place] 180 Ml Bot) 0 ml PO PRN PRN PRN Reason: Sore Throat Sodium Chloride ([place] Nasal [place] 0.65%) 0 ml EA NARE QIDPRN PRN PRN Reason: Nasal Congestion Sodium Chloride (Flush - Normal Saline) 10 ml IVF Q12HR [facility] Sodium Chloride (Flush - Normal Saline) 10 ml IVF PRN PRN PRN Reason: Saline Flush
[2017-11-06] MEDS: Amiodarone 200 MG TAB PO SCH (21:16)
[2017-11-06] MEDS: Atorvastatin Calcium 10 MG TAB PO SCH (21:16)
--- NOTE | 2017-11-06 21:17 | PDOC.CTH ---
Cardiology Progress Note - Subjective No new issues or concerns. He has tolerated full dose lovenox without issues. - Objective Vital Signs Temp Pulse Pulse Pulse Resp BP BP 11/06/17 15:43 99.1 F 73 16 11/06/17 14:31 97 84 162/98 H 158/82 H BP Pulse Ox 11/06/17 15:43 136/82 96 11/06/17 14:31 Admit Weight 167 lb Weight 169 lb 4.8 oz 11/05/17 11/06/17 11/07/17 06:59 06:59 06:59 Intake Total 2251 2295 Output Total 1581 1440 350 Balance 670 855 -350 - Physical Examination General/Neuro: NAD Neck: no JVD present Lungs: unlabored respirations Heart: other: (Irreg) Abdomen: NT/ND Extremities: other: (no edema.) - Telemetry Telemetry Rhythm: Afib HR 70's. - Labs Result Diagrams: 11/06/17 05:12 11/06/17 05:12 - Assessment/Plan 1. Afib RVR, rate controlled. 2. Acute CVA, embolic most likely. PLAN: - Tolerating full dose lovenox. - Will switch to Eliquis tomorrow morning. - Will switch amiodarone drip to PO at 400 mg PO BID for 10 days and then 200 mg daily for maintenance.
[2017-11-07 05:52] LABS: Hemoglobin 10.9 g/dL (14.0-18.0); Platelet Count 195 thou/uL (130-400)
[2017-11-07] MEDS: Aspirin 81 mg Enteric Coated Tablet PO SCH (09:40)
[2017-11-07] MEDS: Allopurinol 300 MG TAB PO SCH (09:40)
[2017-11-07] MEDS: Apixaban 5 MG TAB PO SCH ×2 (09:40→20:28)
[2017-11-07] MEDS: Amiodarone 200 MG TAB PO SCH ×2 (09:40→20:28)
[2017-11-07] MEDS ORDERED: Polyethylene Glycol 3350 17 GM Packet PO SCH (11:30)
[2017-11-07] MEDS ORDERED: Senokot S 8.6-50 MG TAB PO SCH (11:30)
--- NOTE | 2017-11-07 14:35 | PDOC.PN ---
- Subjective Encounter Start Date: 11/07/17 Encounter Start Time: 12:00 Patient seen and examined. No new complaints. No overnight events. No new focal deficits. - Objective Resuscitation Status: Resuscitation Status FULL:Full Resuscitation MAR Reviewed: Yes Vital Signs & Weight: Vital Signs (12 hours) Temp Pulse Resp BP Pulse Ox 11/07/17 12:00 98.4 F 57 L 20 160/74 H 99 11/07/17 08:00 98.4 F 57 L 20 98 11/07/17 04:00 99.2 F 61 18 124/61 93 L Weight Admit Weight 167 lb Weight 162 lb Most Recent Monitor Data Heart Rate from ECG 78 NIBP 153/86 NIBP BP-Mean 98 Respiration from ECG 30 SpO2 96 I&O: 11/06/17 11/07/17 11/08/17 06:59 06:59 06:59 Intake Total 2295 600 Output Total 1440 350 Balance 855 -350 600 Result Diagrams: 11/07/17 05:22 11/06/17 05:12 Additional Labs: Accuchecks 11/07/17 11/07/17 11/07/17 11:09 06:01 01:09 POC Glucose 137 H 92 109 11/06/17 16:49 POC Glucose 106 EKG Reviewed by me: Yes (Tele SR) Phys Exam - Physical Examination Constitutional: NAD Respiratory: no wheezing Neurological: moves all 4 limbs Dx/Plan - Plan DVT proph w/SCDs IMPRESSION: 1. Post circulation CVA s/p TPA 2. HTN 3. Par Afib with RVR - on Amiodarone drip/Anticoag started 4. Dyslipidemia 5. GERD PLAN: * Cardiology/Neuro following * Started on Anticoag/Amiodarone * Amiodarone taper per Cardiology * Cont therapy * DC Hyzaar due to BP on lower side Review of Systems - Medications/Allergies Allergies/Adverse Reactions: Allergies Allergy/AdvReac Type Severity Reaction Status Date / Time No Known Allergies Allergy Verified 11/03/17 18:19 Medications: Current Medications Acetaminophen (Tylenol) 650 mg PO Q6H PRN PRN Reason: Headache/Fever or Mild Pain Acetaminophen (Tylenol) 650 mg [place] Q4H PRN PRN Reason: Headache/Fever or Mild Pain Al Hydroxide/Mg Hydroxide (Maalox) 30 ml PO QIDPRN PRN PRN Reason: Dyspepsia Allopurinol (Zyloprim) 300 mg PO DAILY [facility] Last Admin: 11/07/17 09:40 Dose: 300 mg Amiodarone HCl (Cordarone) 400 mg PO BID [facility] Last Admin: 11/07/17 09:40 Dose: 400 mg Apixaban (Eliquis) 5 mg PO BID [facility] Last Admin: 11/07/17 09:40 Dose: 5 mg Artificial Tears (Tears Naturale) 0 drop EA EYE PRN PRN PRN Reason: Dry Eyes Aspirin (Ecotrin) 81 mg PO DAILY [facility] Last Admin: 11/07/17 09:40 Dose: 81 mg Atorvastatin Calcium (Lipitor) 10 mg PO HS [facility] Last Admin: 11/06/17 21:16 Dose: 10 mg Bisacodyl (Dulcolax) 10 mg [place] DAILYPRN PRN PRN Reason: Constipation Labetalol HCl (Normodyne) 10 mg SLOW IVP Q2H PRN PRN Reason: SBP > 180 Last Admin: 11/04/17 10:12 Dose: 10 mg Magnesium Hydroxide (Milk Of Magnesium) 30 ml PO BIDPRN PRN PRN Reason: Constipation Mineral Oil/White Petrolatum (Eucerin Cream) 0 gm TOP BIDPRN PRN PRN Reason: Dry Skin Ondansetron HCl (Zofran) 4 mg IVP Q6H PRN PRN Reason: Nausea/Vomiting Pantoprazole Sodium (Protonix) 40 mg PO DAILY [facility] Last Admin: 11/07/17 09:40 Dose: 40 mg Phenol (Chloraseptic [place] 180 Ml Bot) 0 ml PO PRN PRN PRN Reason: Sore Throat Polyethylene Glycol (Miralax) 17 gm PO DAILY [facility] Senna/Docusate Sodium (Senokot S) 2 tab PO BID [facility] Sodium Chloride ([place] Nasal [place] 0.65%) 0 ml EA NARE QIDPRN PRN PRN Reason: Nasal Congestion Sodium Chloride (Flush - Normal Saline) 10 ml IVF Q12HR [facility] Last Admin: 11/07/17 09:40 Dose: 10 ml Sodium Chloride (Flush - Normal Saline) 10 ml IVF PRN PRN PRN Reason: Saline Flush
[2017-11-07] MEDS: Senokot S 8.6-50 MG TAB PO SCH (20:23)
[2017-11-07] MEDS: Atorvastatin Calcium 10 MG TAB PO SCH (20:28)
--- NOTE | 2017-11-07 23:04 | PDOC.CTH ---
Cardiology Progress Note - Subjective Doing well. NO new issues. - Objective Vital Signs Temp Pulse Resp BP Pulse Ox 11/07/17 19:40 99.4 F 100 16 131/85 93 L 11/07/17 16:00 99.9 F H 60 18 176/83 H 92 L 11/07/17 12:00 98.4 F 57 L 20 160/74 H 99 Admit Weight 167 lb Weight 162 lb 11/06/17 11/07/17 11/08/17 06:59 06:59 06:59 Intake Total 2295 840 Output Total 1440 350 Balance 855 -350 840 - Physical Examination General/Neuro: alert & oriented x3, NAD Neck: no JVD present Lungs: unlabored respirations Heart: RRR Abdomen: NT/ND Extremities: other: (no edema) - Telemetry Telemetry Rhythm: In sinus now. - Labs Result Diagrams: 11/07/17 05:22 11/06/17 05:12 - Assessment/Plan 1. Afib RVR, rate controlled. 2. Acute CVA, embolic most likely. PLAN: - Tolerating full dose lovenox. - On Eliquis. - On amiodarone PO load at 400 mg PO BID for 9 more days and then 200 mg daily for maintenance. - May discharge at any time from cardiac perspective. - Follow up in 1 month - Will sign off please call with any questions.
[2017-11-08 05:53] LABS: Hemoglobin 12.2 g/dL (14.0-18.0); Platelet Count 217 thou/uL (130-400)
[2017-11-08] MEDS: Apixaban 5 MG TAB PO SCH ×2 (09:30→20:04)
[2017-11-08] MEDS: Amiodarone 200 MG TAB PO SCH ×2 (09:31→20:04)
[2017-11-08] MEDS: Aspirin 81 mg Enteric Coated Tablet PO SCH (09:32)
[2017-11-08 09:33] LABS: White Blood Cell (WBC) Count 15.9 thou/uL (4.8-10.8)
[2017-11-08] MEDS: Allopurinol 300 MG TAB PO SCH (09:34)
[2017-11-08] MEDS: Senokot S 8.6-50 MG TAB PO SCH ×2 (09:35→20:15)
[2017-11-08] MEDS: Polyethylene Glycol 3350 17 GM Packet PO SCH (09:35)
--- NOTE | 2017-11-08 10:22 | PDOC.PN ---
- Subjective Encounter Start Date: 11/08/17 Encounter Start Time: 07:10 -: old records requested/rev Patient seen and examined. No overnight events he is eating less, has cough, no fever - Objective Resuscitation Status: Resuscitation Status FULL:Full Resuscitation MAR Reviewed: Yes Vital Signs & Weight: Vital Signs (12 hours) Temp Pulse Resp BP Pulse Ox 11/08/17 08:00 98.8 F 88 30 H 133/81 93 L 11/08/17 07:37 98.8 F 88 24 H 133/81 94 L 11/08/17 03:44 98.6 F 86 16 150/83 H 96 11/07/17 23:47 99.5 F 95 16 122/75 94 L Weight Admit Weight 167 lb Weight 157 lb 3.2 oz Most Recent Monitor Data Heart Rate from ECG 78 NIBP 153/86 NIBP BP-Mean 98 Respiration from ECG 30 SpO2 96 I&O: 11/07/17 11/08/17 11/09/17 06:59 06:59 06:59 Intake Total 840 Output Total 350 Balance -350 840 Result Diagrams: 11/08/17 09:19 11/08/17 05:00 Additional Labs: Accuchecks 11/08/17 11/07/17 11/07/17 04:50 21:38 17:28 POC Glucose 90 152 H 98 11/07/17 11:09 POC Glucose 137 H EKG Reviewed by me: Yes (afib) Phys Exam - Physical Examination Constitutional: NAD HEENT: PERRLA, moist MMs, sclera anicteric Neck: no JVD, supple Respiratory: no wheezing, no rales, no rhonchi Cardiovascular: no significant murmur, irregular Gastrointestinal: soft, non-tender, no distention, positive bowel sounds Musculoskeletal: no edema, pulses present improving left side weakness Lymphatic: no nodes Psychiatric: normal affect, A&O x 3 Skin: no rash, normal turgor Dx/Plan (1) Acute CVA (cerebrovascular accident) Code(s): I63.9 - CEREBRAL INFARCTION, UNSPECIFIED Status: Acute Comment: posterior circulation CVA (2) Dyslipidemia Code(s): E78.5 - HYPERLIPIDEMIA, UNSPECIFIED Status: Chronic (3) GERD (gastroesophageal reflux disease) Code(s): K21.9 - GASTRO-ESOPHAGEAL REFLUX DISEASE WITHOUT ESOPHAGITIS Status: Chronic (4) Hypertension Code(s): I10 - ESSENTIAL (PRIMARY) HYPERTENSION Status: Chronic (5) Paroxysmal atrial fibrillation Code(s): I48.0 - PAROXYSMAL ATRIAL FIBRILLATION Status: Chronic (6) Atrial fibrillation with RVR Code(s): I48.91 - UNSPECIFIED ATRIAL FIBRILLATION Status: Resolved (7) Leucocytosis Code(s): D72.829 - ELEVATED WHITE BLOOD CELL COUNT, UNSPECIFIED Status: Acute - Plan cont current plan of care, plan discussed w/ family * will check UA and urine culture * will check xray chest * plan for discharge to rehab later today * medication reviewed as below * symptomatic treatment * discussed with family. Review of Systems - Review of Systems Constitutional: negative: fever, chills, sweats, weakness, malaise, other Eyes: negative: Pain, Vision Change, Conjunctivae Inflammation, Eyelid Inflammation, Redness, Other ENT: negative: Ear Pain, Ear Discharge, Nose Pain, Nose Discharge, Nose Congestion, Mouth Pain, Mouth Swelling, Throat Pain, Throat Swelling, Other Respiratory: Cough. negative: Dry, Shortness of Breath, Hemoptysis, SOB with Excertion, Pleuritic Pain, Sputum, Wheezing Cardiovascular: negative: chest pain, palpitations, orthopnea, paroxysmal nocturnal dyspnea, edema, light headedness, other Gastrointestinal: negative: Nausea, Vomiting, Abdominal Pain, Diarrhea, Constipation, Melena, Hematochezia, Other Genitourinary: negative: Dysuria, Frequency, Incontinence, Hematuria, Retention , Other Musculoskeletal: negative: Neck Pain, Shoulder Pain, Arm Pain, Back Pain, Hand Pain, Leg Pain, Foot Pain, Other Skin: negative: Rash, Lesions, Hemant, Bruising, Other - Medications/Allergies Allergies/Adverse Reactions: Allergies Allergy/AdvReac Type Severity Reaction Status Date / Time No Known Allergies Allergy Verified 11/03/17 18:19 Medications: Current Medications Acetaminophen (Tylenol) 650 mg PO Q6H PRN PRN Reason: Headache/Fever or Mild Pain Acetaminophen (Tylenol) 650 mg [place] Q4H PRN PRN Reason: Headache/Fever or Mild Pain Al Hydroxide/Mg Hydroxide (Maalox) 30 ml PO QIDPRN PRN PRN Reason: Dyspepsia Allopurinol (Zyloprim) 300 mg PO DAILY [facility] Last Admin: 11/08/17 09:34 Dose: 300 mg Amiodarone HCl (Cordarone) 400 mg PO BID [facility] Last Admin: 11/08/17 09:31 Dose: 400 mg Apixaban (Eliquis) 5 mg PO BID [facility] Last Admin: 11/08/17 09:30 Dose: 5 mg Artificial Tears (Tears Naturale) 0 drop EA EYE PRN PRN PRN Reason: Dry Eyes Aspirin (Ecotrin) 81 mg PO DAILY [facility] Last Admin: 11/08/17 09:32 Dose: 81 mg Atorvastatin Calcium (Lipitor) 10 mg PO HS [facility] Last Admin: 11/07/17 20:28 Dose: 10 mg Bisacodyl (Dulcolax) 10 mg [place] DAILYPRN PRN PRN Reason: Constipation Labetalol HCl (Normodyne) 10 mg SLOW IVP Q2H PRN PRN Reason: SBP > 180 Last Admin: 11/04/17 10:12 Dose: 10 mg Magnesium Hydroxide (Milk Of Magnesium) 30 ml PO BIDPRN PRN PRN Reason: Constipation Mineral Oil/White Petrolatum (Eucerin Cream) 0 gm TOP BIDPRN PRN PRN Reason: Dry Skin Ondansetron HCl (Zofran) 4 mg IVP Q6H PRN PRN Reason: Nausea/Vomiting Pantoprazole Sodium (Protonix) 40 mg PO DAILY [facility] Last Admin: 11/08/17 09:32 Dose: 40 mg Phenol (Chloraseptic [place] 180 Ml Bot) 0 ml PO PRN PRN PRN Reason: Sore Throat Polyethylene Glycol (Miralax) 17 gm PO DAILY [facility] Last Admin: 11/08/17 09:35 Dose: Not Given Senna/Docusate Sodium (Senokot S) 2 tab PO BID [facility] Last Admin: 11/08/17 09:35 Dose: Not Given Sodium Chloride ([place] Nasal [place] 0.65%) 0 ml EA NARE QIDPRN PRN PRN Reason: Nasal Congestion Sodium Chloride (Flush - Normal Saline) 10 ml IVF Q12HR [facility] Last Admin: 11/08/17 09:34 Dose: 10 ml Sodium Chloride (Flush - Normal Saline) 10 ml IVF PRN PRN PRN Reason: Saline Flush
--- NOTE | 2017-11-08 12:15 | DIS ---
PRIMARY CARE PHYSICIAN: Dr. Hilaria Garcia DATE OF ADMISSION: 11/03/2017 DATE OF DISCHARGE: 11/08/2017 DISCHARGE DISPOSITION: Inpatient rehab. PRIMARY DISCHARGE DIAGNOSES: 1. 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 2. Atrial fibrillation with rapid ventricular response, controlled. 3. Leukocytosis. SECONDARY DISCHARGE DIAGNOSES: Paroxysmal atrial fibrillation, hypertension, gastroesophageal reflux disease, dyslipidemia, history of transient ischemic attack. PRIMARY PROCEDURE/OPERATION: The patient underwent mechanical thrombectomy by Dr. Zambrano. RADIOLOGICAL INVESTIGATION: Echocardiography showed EF 60-65%, diastolic dysfunction. Carotid Doppl er study was negative for any stenosis. CT brain showed no acute intracranial bleed or mass effect. MRI brain showed multiple foci of small acute or subacute infarction in the posterior circulation te rritory including brain stem, left cerebellar, right thalamus, right occipital lobe. Modified barium swallow with Speech Therapy showed laryngeal penetration and aspiration. SIGNIFICANT LABS: WBC 15.9, hemoglobin 12.2, platelet 217. INR 1.2. BMP: Sodium 134, potassium 3. 7, BUN 12, creatinine 0.86, B12 1146. Folate 15.1. Homocysteine 1.5, LDL 69. DISCHARGE MEDICATIONS: Allopurinol 300 mg p.o. daily, amiodarone 400 mg p.o. b.i.d. for 8 more days and then 200 mg p.o. daily, Eliquis 5 mg p.o. b.i.d., aspirin 81 mg p.o. daily, Lipitor 10 mg p.o. at bedtime, Flonase nasal spray b.i.d., gabapentin 200 mg p.o. b.i.d., Atarax 25 mg p.o. at bedtime p.r .n., Protonix 40 mg p.o. daily, MiraLax 17 grams p.o. daily. CONTRAINDICATIONS: None. CODE STATUS: FULL CODE. INPATIENT CONSULTANTS: Initially, this patient was evaluated at [facility], subs equently, this patient was admitted under Dr. Carlitos Zambrano, but subsequently primary attending was luc kelly to Dr. Stoddard. Dr. Peraza was following because the patient stayed in ICU. Dr. Emerson Lima was consulted for stroke team. Dr. Paulino was consulted for atrial fibrillation with rapid ventricular response. TEST RESULTS PENDING ON DISCHARGE: None. ALLERGIES: No known drug allergy. DISCHARGE PLAN: Post hospital, the patient is planned for discharge to Rehab. Subsequently the martina ent will follow up with Dr. Paulino, Dr. Mary Harris and Dr. eBrnarda Stanton as instructed. HOSPITAL COURSE: A 72-year-old male who was initially at home around 10:30 p.m. At home, he was hav ing acute vertiginous symptoms with dizziness, nausea and vomiting. He was taken to [facility] where workup was unremarkable. 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 After consultation with Dr. Carlitos Zambrano, the patient was transferred to our hospital for mechanical thrombectomy, before that the patient also received t-PA. After a mechanical thrombectomy the patient was observed in the CCU. The patient had a stroke workup including echocardiography which was normal and a repeat CT brain the next day was also unremarkable . MRI brain was done which showed multiple small stroke in the posterior circulation. This patient also developed atrial fibrillation with RVR that is why Cardiology was consulted and the patient was started on amiodarone drip. Subsequently the patient was loaded with amiodarone orally and the patient's heart rate was under control. As this patient has CHADS 2 score and that is why anticoagulation was recommended and we started on E liquis on discharge. As Stroke team including Neurology saw this patient while in hospital, the patie nt is tolerating his modified diet. He needs now PT, OT, and speech therapy. On the day of discharge, he had leukocytosis and that is why we ordered a chest x-ray, urinalysis and urine culture that is pending. He is afebrile. The patient is medically stable for discharge to rehab. Paper work for discharge done. DISCHARGE MEDICATIONS: Medication reconciliation done. Given his leukocytosis, we are preferring antibiotic therapy on discharge with Ceftin 250 mg b.i.d. f or another 7 days. Plan of care discussed with the family member. The patient is medically stable for discharge today.
--- NOTE | 2017-11-08 15:21 | RAD ---
PORTABLE CHEST ONE VIEW: Date: 11-08-17 Time: 11:43 a.m. History: Leukocytosis. FINDINGS: The heart size is normal. No focal areas of consolidation, pneumothorax, drew pulmonary edema or ple ural effusions are seen. IMPRESSION: No acute process. POS: [facility]
[2017-11-08] MEDS ORDERED: cefTRIAXone\\ROCEPHIN 1 GM in Sodium Chloride 0.9% 100 ML IVPB SCH (16:15)
[2017-11-08] MEDS: Atorvastatin Calcium 10 MG TAB PO SCH (20:04)
[2017-11-09 01:28] LABS: Bilirubin Negative (Negative); Blood, Urine Large (Negative); Clarity CLOUDY (Clear); Glucose, Urine (Dipstick) Negative (Negative); Leukocyte Large (Negative); Nitrite Negative (Negative); Protein, Urine (Dipstick) 30 mg/dL (Neg-Trace); Specific Gravity, Urine 1.003 (1.002-1.036)
[2017-11-09 01:31] LABS: Bacteria/HPF 4+ HPF (None Seen); Hyaline Casts/LPF 0-3 HYALINE CAST LPF (0-3 Hyaline); Pathc Cast-AUWi Flag 0.54 (0-2.49); RBC/HPF 21-50 HPF (0-3); Squamous Epithelial None Seen HPF (0-3)
[2017-11-09] MEDS: cefTRIAXone\\ROCEPHIN 1 GM, Syringe 0.4 ML in Sterile Water 9.6 ML SLOW IVP SCH ×2 (03:09→18:33)
[2017-11-09 05:42] LABS: ALT (SGPT) 24 U/L (8-55); AST (SGOT) 28 U/L (5-34); Albumin 3.3 g/dL (3.4-4.8); Alkaline Phosphatase 82 U/L (40-150); Anion Gap 15 mmol/L (10-20); BUN (Urea Nitrogen) 9 mg/dL (8.4-25.7); Bilirubin, Total 0.8 mg/dL (0.2-1.2); Calc. Creatinine Clearance 76 mL/min (70-130); Calcium 9.2 mg/dL (7.8-10.44); Carbon Dioxide 26 mmol/L (23-31); Chloride 94 mmol/L (98-107); Estimated GFR-MDRD 81; Globulin 3.5 g/dL (2.4-3.5); Glucose 93 mg/dL (80-115); Potassium 3.7 mmol/L (3.5-5.1); Protein, Total 6.8 g/dL (5.8-8.1); Sodium 131 mmol/L (136-145)
[2017-11-09 06:09] LABS: Band 17 % (5-11); Hemoglobin 12.2 g/dL (14.0-18.0); Lymphocytes 9 % (21-51); MDiff Complete? YES; Mean Corpuscular Hemoglobin 29.6 pg (27.0-31.0); Mean Corpuscular Volume 92.3 fl (80.0-94.0); Mean Platelet Volume 8.4 fL (7.4-10.4); Monocytes 9 % (0-10); Neutrophil 65 % (42-75); Platelet Count 219 thou/uL (130-400); RBC Distribution Width 15.1 % (11.5-14.5); Red Blood Cell (RBC) Count 4.11 mill/uL (4.70-6.10); White Blood Cell (WBC) Count 21.2 thou/uL (4.8-10.8)
--- NOTE | 2017-11-09 10:03 | PDOC.PN ---
- Subjective Encounter Start Date: 11/09/17 Encounter Start Time: 07:00 pt has low grade fever, today wbc count is high, no cough - Objective Resuscitation Status: Resuscitation Status FULL:Full Resuscitation MAR Reviewed: Yes Vital Signs & Weight: Vital Signs (12 hours) Temp Pulse Resp BP Pulse Ox 11/09/17 07:25 99.5 F 103 H 20 133/99 H 92 L 11/09/17 03:14 99.6 F 18 171/98 H 95 11/08/17 23:12 99.3 F 80 15 125/82 96 Weight Admit Weight 167 lb Weight 158 lb 8 oz Most Recent Monitor Data Heart Rate from ECG 78 NIBP 153/86 NIBP BP-Mean 98 Respiration from ECG 30 SpO2 96 I&O: 11/08/17 11/09/17 11/10/17 06:59 06:59 06:59 Intake Total 840 Balance 840 Result Diagrams: 11/09/17 04:42 11/09/17 04:42 Additional Labs: Accuchecks 11/09/17 11/08/17 11/08/17 05:20 23:50 17:27 POC Glucose 94 99 115 H 11/08/17 11:20 POC Glucose 192 H EKG Reviewed by me: Yes (afib) Phys Exam - Physical Examination Constitutional: NAD HEENT: PERRLA, moist MMs, sclera anicteric Neck: no JVD, supple Respiratory: no wheezing, no rales, no rhonchi Cardiovascular: RRR, no significant murmur, no rub Gastrointestinal: soft, non-tender, no distention, positive bowel sounds Musculoskeletal: no edema, pulses present Neurological: moves all 4 limbs mild left side weakness Lymphatic: no nodes Psychiatric: normal affect, A&O x 3 Skin: no rash, normal turgor Dx/Plan (1) Acute CVA (cerebrovascular accident) Code(s): I63.9 - CEREBRAL INFARCTION, UNSPECIFIED Status: Acute Comment: posterior circulation CVA (2) Leucocytosis Code(s): D72.829 - ELEVATED WHITE BLOOD CELL COUNT, UNSPECIFIED Status: Acute (3) Sepsis Code(s): A41.9 - SEPSIS, UNSPECIFIED ORGANISM Status: Acute (4) UTI (urinary tract infection) Status: Acute (5) Dyslipidemia Code(s): E78.5 - HYPERLIPIDEMIA, UNSPECIFIED Status: Chronic (6) GERD (gastroesophageal reflux disease) Code(s): K21.9 - GASTRO-ESOPHAGEAL REFLUX DISEASE WITHOUT ESOPHAGITIS Status: Chronic (7) Hypertension Code(s): I10 - ESSENTIAL (PRIMARY) HYPERTENSION Status: Chronic (8) Paroxysmal atrial fibrillation Code(s): I48.0 - PAROXYSMAL ATRIAL FIBRILLATION Status: Chronic (9) Atrial fibrillation with RVR Code(s): I48.91 - UNSPECIFIED ATRIAL FIBRILLATION Status: Resolved - Plan cont current plan of care, plan discussed w/ family, continue antibiotics, PT/OT , social media marketing analyst, speech therapy * will monitor today * will repeat labs tomorrow * continue rocephin and levaquin * follow culture * updated plan to family * medication reviewed as below * symptomatic treatment * stroke team . Review of Systems - Review of Systems ENT: negative: Ear Pain, Ear Discharge, Nose Pain, Nose Discharge, Nose Congestion, Mouth Pain, Mouth Swelling, Throat Pain, Throat Swelling, Other Respiratory: negative: Cough, Dry, Shortness of Breath, Hemoptysis, SOB with Excertion, Pleuritic Pain, Sputum, Wheezing Cardiovascular: negative: chest pain, palpitations, orthopnea, paroxysmal nocturnal dyspnea, edema, light headedness, other Gastrointestinal: negative: Nausea, Vomiting, Abdominal Pain, Diarrhea, Constipation, Melena, Hematochezia, Other Genitourinary: negative: Dysuria, Frequency, Incontinence, Hematuria, Retention , Other Musculoskeletal: negative: Neck Pain, Shoulder Pain, Arm Pain, Back Pain, Hand Pain, Leg Pain, Foot Pain, Other - Medications/Allergies Allergies/Adverse Reactions: Allergies Allergy/AdvReac Type Severity Reaction Status Date / Time No Known Allergies Allergy Verified 11/03/17 18:19 Medications: Current Medications Acetaminophen (Tylenol) 650 mg PO Q6H PRN PRN Reason: Headache/Fever or Mild Pain Last Admin: 11/08/17 17:59 Dose: 650 mg Acetaminophen (Tylenol) 650 mg [place] Q4H PRN PRN Reason: Headache/Fever or Mild Pain Al Hydroxide/Mg Hydroxide (Maalox) 30 ml PO QIDPRN PRN PRN Reason: Dyspepsia Allopurinol (Zyloprim) 300 mg PO DAILY [facility] Last Admin: 11/08/17 09:34 Dose: 300 mg Amiodarone HCl (Cordarone) 400 mg PO BID [facility] Last Admin: 11/08/17 20:04 Dose: 400 mg Apixaban (Eliquis) 5 mg PO BID [facility] Last Admin: 11/08/17 20:04 Dose: 5 mg Artificial Tears (Tears Naturale) 0 drop EA EYE PRN PRN PRN Reason: Dry Eyes Aspirin (Ecotrin) 81 mg PO DAILY [facility] Last Admin: 11/08/17 09:32 Dose: 81 mg Atorvastatin Calcium (Lipitor) 10 mg PO HS [facility] Last Admin: 11/08/17 20:04 Dose: 10 mg Bisacodyl (Dulcolax) 10 mg [place] DAILYPRN PRN PRN Reason: Constipation Levofloxacin 500 mg/ Device 100 mls @ 100 mls/hr IVPB Q24HR [facility] Last Admin: 11/09/17 02:15 Dose: 100 mls Ceftriaxone Sodium 1 gm/ (Syringe 0.4 ml/ Sterile Water) 10 mls @ 120 mls/hr SLOW IVP Q24HR@1800 [facility] Last Admin: 11/09/17 03:09 Dose: 10 mls Labetalol HCl (Normodyne) 10 mg SLOW IVP Q2H PRN PRN Reason: SBP > 180 Last Admin: 11/04/17 10:12 Dose: 10 mg Magnesium Hydroxide (Milk Of Magnesium) 30 ml PO BIDPRN PRN PRN Reason: Constipation Mineral Oil/White Petrolatum (Eucerin Cream) 0 gm TOP BIDPRN PRN PRN Reason: Dry Skin Ondansetron HCl (Zofran) 4 mg IVP Q6H PRN PRN Reason: Nausea/Vomiting Pantoprazole Sodium (Protonix) 40 mg PO DAILY [facility] Last Admin: 11/08/17 09:32 Dose: 40 mg Phenol (Chloraseptic [place] 180 Ml Bot) 0 ml PO PRN PRN PRN Reason: Sore Throat Polyethylene Glycol (Miralax) 17 gm PO DAILY [facility] Last Admin: 11/08/17 09:35 Dose: Not Given Senna/Docusate Sodium (Senokot S) 2 tab PO BID [facility] Last Admin: 11/08/17 20:15 Dose: Not Given Sodium Chloride ([place] Nasal [place] 0.65%) 0 ml EA NARE QIDPRN PRN PRN Reason: Nasal Congestion Sodium Chloride (Flush - Normal Saline) 10 ml IVF Q12HR [facility] Last Admin: 02/14/18 20:15 Dose: 10 ml Sodium Chloride (Flush - Normal Saline) 10 ml IVF PRN PRN PRN Reason: Saline Flush
[2017-11-09] MEDS: Amiodarone 200 MG TAB PO SCH ×2 (10:10→21:09)
[2017-11-09] MEDS: Apixaban 5 MG TAB PO SCH ×2 (10:10→21:09)
[2017-11-09] MEDS: Allopurinol 300 MG TAB PO SCH (10:10)
[2017-11-09] MEDS: Polyethylene Glycol 3350 17 GM Packet PO SCH (10:11)
[2017-11-09] MEDS: Senokot S 8.6-50 MG TAB PO SCH ×2 (10:11→21:09)
[2017-11-09] MEDS: Aspirin 81 mg Enteric Coated Tablet PO SCH (10:11)
[2017-11-09 15:05] VITALS: BMI 27.1
[2017-11-09] MEDS: Atorvastatin Calcium 10 MG TAB PO SCH (21:09)
[2017-11-10 05:41] LABS: #Eosinphils 0.4 thou/uL (0.0-0.7); #Lymphocytes 1.8 thou/uL (1.20-3.40); #Monocytes 1.7 thou/uL (0.11-0.59); #Neutrophils 12.5 thou/uL (1.40-6.50); %Basophils 0.1 % (0.0-1.0); %Eosinophils 2.2 % (0.0-10.0); %Lymphocytes 10.9 % (21.0-51.0); %Monocytes 10.3 % (0.0-10.0); %Neutrophils 76.5 % (42.0-75.0); Hemoglobin 11.3 g/dL (14.0-18.0); Mean Corpuscular HGB CONC 31.9 g/dL (32.0-36.0); Mean Corpuscular Hemoglobin 29.9 pg (27.0-31.0); Mean Corpuscular Volume 93.6 fl (80.0-94.0); Mean Platelet Volume 8.7 fL (7.4-10.4); Platelet Count 225 thou/uL (130-400); RBC Distribution Width 15.1 % (11.5-14.5); Red Blood Cell (RBC) Count 3.79 mill/uL (4.70-6.10); White Blood Cell (WBC) Count 16.3 thou/uL (4.8-10.8)
[2017-11-10 06:11] LABS: Anion Gap 14 mmol/L (10-20); BUN (Urea Nitrogen) 19 mg/dL (8.4-25.7); Calc. Creatinine Clearance 68 mL/min (70-130); Carbon Dioxide 26 mmol/L (23-31); Chloride 95 mmol/L (98-107); Estimated GFR-MDRD 74; Glucose 98 mg/dL (80-115); Potassium 3.7 mmol/L (3.5-5.1); Sodium 131 mmol/L (136-145)
[2017-11-10] MEDS: Amiodarone 200 MG TAB PO SCH (09:37)
[2017-11-10] MEDS: Allopurinol 300 MG TAB PO SCH (09:37)
[2017-11-10] MEDS: Polyethylene Glycol 3350 17 GM Packet PO SCH (09:38)
[2017-11-10] MEDS: Senokot S 8.6-50 MG TAB PO SCH (09:38)
[2017-11-10] MEDS: Aspirin 81 mg Enteric Coated Tablet PO SCH (09:38)
[2017-11-10] MEDS: Apixaban 5 MG TAB PO SCH (09:38)
--- NOTE | 2017-11-10 09:49 | PDOC.PN ---
- Subjective Encounter Start Date: 11/10/17 Encounter Start Time: 07:10 c/o hiccough - Objective Resuscitation Status: Resuscitation Status FULL:Full Resuscitation MAR Reviewed: Yes Vital Signs & Weight: Vital Signs (12 hours) Temp Pulse Resp BP Pulse Ox 11/10/17 09:04 98.6 F 68 18 123/88 94 L 11/10/17 03:22 98.6 F 63 24 H 114/77 93 L 11/09/17 23:48 98.5 F 66 20 112/72 94 L Weight Admit Weight 167 lb Weight 155 lb 1.6 oz Most Recent Monitor Data Heart Rate from ECG 78 NIBP 153/86 NIBP BP-Mean 98 Respiration from ECG 30 SpO2 96 Result Diagrams: 11/10/17 04:53 11/10/17 04:53 Additional Labs: Accuchecks 11/09/17 11/09/17 17:25 11:26 POC Glucose 192 H 121 H EKG Reviewed by me: Yes Phys Exam - Physical Examination Constitutional: NAD HEENT: PERRLA, moist MMs, sclera anicteric Neck: no JVD, supple Respiratory: no wheezing, no rales, no rhonchi Cardiovascular: RRR, no significant murmur, no rub Gastrointestinal: soft, non-tender, no distention, positive bowel sounds Musculoskeletal: no edema, pulses present Neurological: non-focal, normal sensation, moves all 4 limbs improving left side weakness Psychiatric: normal affect, A&O x 3 Skin: no rash, normal turgor Dx/Plan (1) Acute CVA (cerebrovascular accident) Code(s): I63.9 - CEREBRAL INFARCTION, UNSPECIFIED Status: Acute Comment: posterior circulation CVA (2) Leucocytosis Code(s): D72.829 - ELEVATED WHITE BLOOD CELL COUNT, UNSPECIFIED Status: Acute (3) Sepsis Code(s): A41.9 - SEPSIS, UNSPECIFIED ORGANISM Status: Acute (4) UTI (urinary tract infection) Status: Acute (5) Dyslipidemia Code(s): E78.5 - HYPERLIPIDEMIA, UNSPECIFIED Status: Chronic (6) GERD (gastroesophageal reflux disease) Code(s): K21.9 - GASTRO-ESOPHAGEAL REFLUX DISEASE WITHOUT ESOPHAGITIS Status: Chronic (7) Hypertension Code(s): I10 - ESSENTIAL (PRIMARY) HYPERTENSION Status: Chronic (8) Paroxysmal atrial fibrillation Code(s): I48.0 - PAROXYSMAL ATRIAL FIBRILLATION Status: Chronic (9) Atrial fibrillation with RVR Code(s): I48.91 - UNSPECIFIED ATRIAL FIBRILLATION Status: Resolved - Plan cont current plan of care, plan discussed w/ family, continue antibiotics, PT/OT , healthcare social worker, speech therapy * give chlorpromazine one time * medication reviewed as below * symptomatic treatment * stable for discharge. Review of Systems - Review of Systems ENT: negative: Ear Pain, Ear Discharge, Nose Pain, Nose Discharge, Nose Congestion, Mouth Pain, Mouth Swelling, Throat Pain, Throat Swelling, Other Respiratory: negative: Cough, Dry, Shortness of Breath, Hemoptysis, SOB with Excertion, Pleuritic Pain, Sputum, Wheezing Cardiovascular: negative: chest pain, palpitations, orthopnea, paroxysmal nocturnal dyspnea, edema, light headedness, other Gastrointestinal: Other (hicoough). negative: Nausea, Vomiting, Abdominal Pain , Diarrhea, Constipation, Melena, Hematochezia Genitourinary: negative: Dysuria, Frequency, Incontinence, Hematuria, Retention , Other Musculoskeletal: negative: Neck Pain, Shoulder Pain, Arm Pain, Back Pain, Hand Pain, Leg Pain, Foot Pain, Other - Medications/Allergies Allergies/Adverse Reactions: Allergies Allergy/AdvReac Type Severity Reaction Status Date / Time No Known Allergies Allergy Verified 11/03/17 18:19 Medications: Current Medications Acetaminophen (Tylenol) 650 mg PO Q6H PRN PRN Reason: Headache/Fever or Mild Pain Last Admin: 11/08/17 17:59 Dose: 650 mg Acetaminophen (Tylenol) 650 mg [place] Q4H PRN PRN Reason: Headache/Fever or Mild Pain Al Hydroxide/Mg Hydroxide (Maalox) 30 ml PO QIDPRN PRN PRN Reason: Dyspepsia Allopurinol (Zyloprim) 300 mg PO DAILY [facility] Last Admin: 11/10/17 09:37 Dose: 300 mg Amiodarone HCl (Cordarone) 400 mg PO BID [facility] Last Admin: 11/10/17 09:37 Dose: 400 mg Apixaban (Eliquis) 5 mg PO BID [facility] Last Admin: 11/10/17 09:38 Dose: 5 mg Artificial Tears (Tears Naturale) 0 drop EA EYE PRN PRN PRN Reason: Dry Eyes Aspirin (Ecotrin) 81 mg PO DAILY [facility] Last Admin: 11/10/17 09:38 Dose: 81 mg Atorvastatin Calcium (Lipitor) 10 mg PO HS [facility] Last Admin: 11/09/17 21:09 Dose: 10 mg Bisacodyl (Dulcolax) 10 mg [place] DAILYPRN PRN PRN Reason: Constipation Chlorpromazine HCl (Thorazine) 25 mg PO NOW [facility] Stop: 11/10/17 12:00 Levofloxacin 500 mg/ Device 100 mls @ 100 mls/hr IVPB Q24HR [facility] Last Admin: 11/09/17 16:54 Dose: 100 mls Ceftriaxone Sodium 1 gm/ (Syringe 0.4 ml/ Sterile Water) 10 mls @ 120 mls/hr SLOW IVP Q24HR@1800 [facility] Last Admin: 11/09/17 18:33 Dose: 10 mls Labetalol HCl (Normodyne) 10 mg SLOW IVP Q2H PRN PRN Reason: SBP > 180 Last Admin: 11/04/17 10:12 Dose: 10 mg Magnesium Hydroxide (Milk Of Magnesium) 30 ml PO BIDPRN PRN PRN Reason: Constipation Mineral Oil/White Petrolatum (Eucerin Cream) 0 gm TOP BIDPRN PRN PRN Reason: Dry Skin Ondansetron HCl (Zofran) 4 mg IVP Q6H PRN PRN Reason: Nausea/Vomiting Pantoprazole Sodium (Protonix) 40 mg PO DAILY [facility] Last Admin: 11/10/17 09:38 Dose: 40 mg Phenol (Chloraseptic [place] 180 Ml Bot) 0 ml PO PRN PRN PRN Reason: Sore Throat Polyethylene Glycol (Miralax) 17 gm PO DAILY [facility] Last Admin: 11/10/17 09:38 Dose: Not Given Senna/Docusate Sodium (Senokot S) 2 tab PO BID [facility] Last Admin: 11/10/17 09:38 Dose: Not Given Sodium Chloride ([place] Nasal [place] 0.65%) 0 ml EA NARE QIDPRN PRN PRN Reason: Nasal Congestion Sodium Chloride (Flush - Normal Saline) 10 ml IVF Q12HR [facility] Last Admin: 11/10/17 09:39 Dose: 10 ml Sodium Chloride (Flush - Normal Saline) 10 ml IVF PRN PRN PRN Reason: Saline Flush
[2017-11-10] MEDS ORDERED: chlorproMAZINE HCl 25 MG TAB PO SCH (10:00)
--- NOTE | 2017-11-10 10:39 | ADD-DIS ---
ADDENDUM Please see my discharge summary dictated on 11/08/2017. This patient was planned for discharge on at , but he was having leukocytosis. After that the patient also spiked fever of 102 and we decid ed to do a chest x-ray which came back normal. The patient was having voiding difficulty and that is why we did straight in and out catheter and subsequently we checked urinalysis which was consistent with urinary tract infection. We sent urine culture and blood culture and we started on Rocephin and levofloxacin. Subsequently, this patient did not have any further fever. His WBC count is also com ing down. The patient was having hiccups and that is why today I gave him chlorpromazine p.o., that can be repeated as needed basis at rehab. The patient is overall doing very well. He will need a CB C on Monday. Otherwise, the patient needs a stroke team evaluation at rehab. The patient is medical ly stable for discharge. The patient is seen and examined at bedside today. Plan of care discussed with the family member. Joseline bob see my discharge summary from 11/08/2017 for more details and today's progress note for more de tails.
[2017-11-10 11:59] VITALS: BP 101/74; TEMP 98
== END 2017-11-10 16:05 | DRG 24 ==
LOC: SDC 08:18 → CCU 09:28 → 2SE 11-05 16:06
PROVIDERS: ADMIT Neurological Surgery; ATTEND Neurological Surgery
PROC: B31F1ZZ Fluoroscopy of Left Vertebral Artery using Low Osmolar Contrast (ICD-10-PCS; principal; 2017-11-03)
PROC: 03CG3ZZ Extirpation of Matter from Intracranial Artery, Percutaneous Approach (ICD-10-PCS; 2017-11-03)
DX: I63.9 Cerebral infarction, unspecified (principal); G81.94 Hemiplegia, unspecified affecting left nondominant side; I48.0 Paroxysmal atrial fibrillation; N39.0 Urinary tract infection, site not specified; Z92.82 Status post administration of tPA (rtPA) in a different facility within the last 24 hours prior to admission to current facility; I10 Essential (primary) hypertension; G47.30 Sleep apnea, unspecified; R06.6 Hiccough; K21.9 Gastro-esophageal reflux disease without esophagitis; E78.5 Hyperlipidemia, unspecified; I25.10 Atherosclerotic heart disease of native coronary artery without angina pectoris; M10.9 Gout, unspecified; J30.9 Allergic rhinitis, unspecified
CPT/HCPCS: 36216; 36218; 36226; 36415; 36416; 70450; 70551; 71045; 74230; 80048; 80053; 80061; 81003; 81015; 82565; 82607; 82746; 83090; 85014; 85018; 85025; 85048; 85049; 85610; 85730; 87040; 87077; 87086; 87186; 90471; 90670; 93306; 93880; A4216; C1757; C1769; C1887; C9113; G0009; G8978-GP-CK; G8979-GP-CI; G8987-GO-CL; G8988-GO-CJ; G8996-GN-CK; G8996-GN-CM; G8997-GN-CJ; G8997-GN-CK; G8997-GN-CM; J0282; J0696; J1650; J1956; J2270; J3010; J7070; Q0161

== ENCOUNTER 2018-08-27 19:30 | Outpatient (CLI) | payer MEDICARE, OTHER | END 2018-08-27 19:31 | disposition home or self-care (01) | LOC: SLEEPLAB 19:30 | PROVIDERS: ATTEND Family Medicine | DX: G47.33 Obstructive sleep apnea (adult) (pediatric) (principal) | CPT/HCPCS: 95810 ==

== ENCOUNTER 2018-10-25 13:33 | Outpatient (CLI) | payer MEDICARE, OTHER ==
--- NOTE | 2018-11-15 12:22 | ULT ---
LOWER EXTREMITY ARTERIAL EVALUATION: Lower extremity arterial evaluation was performed using Doppler waveform analysis and segmental limb pressures. Examination of the right leg reveals satisfactory waveform at the femoral level with mild decreased w aveforms distally and an ankle-arm index of 0.81. Toe-brachial index is mildly depressed at 0.65. Left lower extremity demonstrates similar findings, with an ankle-arm index of 0.86 and a toe-brachia l index of 0.60. This study demonstrates mild peripheral vascular disease and could be consistent with history of vasc ular claudication, but would not be consistent with a history of rest pain or ischemic ulcers.
== END 2018-10-25 13:34 | disposition home or self-care (01) ==
LOC: ULT 13:33
PROVIDERS: ATTEND Family Medicine
DX: I73.9 Peripheral vascular disease, unspecified (principal)
CPT/HCPCS: 93922

== ENCOUNTER 2021-09-22 15:37 | Outpatient (CLI) | payer MEDICARE | END 2021-09-22 15:38 | disposition home or self-care (01) | LOC: SCSMRI 15:37 | PROVIDERS: ATTEND Family Medicine | DX: M51.16 Intervertebral disc disorders with radiculopathy, lumbar region (principal); M25.552 Pain in left hip; M51.27 Other intervertebral disc displacement, lumbosacral region; M48.061 Spinal stenosis, lumbar region without neurogenic claudication; M25.78 Osteophyte, vertebrae; M43.16 Spondylolisthesis, lumbar region | CPT/HCPCS: 72148; 72170 ==

== ENCOUNTER 2022-04-29 21:50 | Inpatient (IN) | payer MEDICARE ==
[2022-04-29 22:43] LABS: #Basophils 0.1 thou/uL (0.0-0.2); #Eosinphils 0.6 thou/uL (0.0-0.7); #Lymphocytes 3.8 thou/uL (1.20-3.40); #Monocytes 1.5 thou/uL (0.11-0.59); #Neutrophils 4.6 thou/uL (1.40-6.50); %Basophils 0.6 % (0.0-1.0); %Eosinophils 6.1 % (0.0-10.0); %Lymphocytes 35.7 % (21.0-51.0); %Monocytes 13.9 % (0.0-10.0); %Neutrophils 43.6 % (42.0-75.0); Hemoglobin 6.9 g/dL (14.0-18.0); Mean Corpuscular HGB CONC 28.3 g/dL (32.0-36.0); Mean Corpuscular Hemoglobin 19.5 pg (27.0-31.0); Mean Corpuscular Volume 68.9 fL (78.0-98.0); Mean Platelet Volume 10.1 fL (7.4-10.4); Platelet Count 290 thou/uL (130-400); RBC Distribution Width 17.9 % (11.5-14.5); Red Blood Cell (RBC) Count 3.53 mill/uL (4.70-6.10); White Blood Cell (WBC) Count 10.5 thou/uL (4.8-10.8)
[2022-04-29 22:45] LABS: ALT (SGPT) 8 U/L (8-55); AST (SGOT) 17 U/L (5-34); Albumin 3.8 g/dL (3.4-4.8); Alkaline Phosphatase 99 U/L (40-110); Anion Gap 11 mmol/L (10-20); BUN (Urea Nitrogen) 19 mg/dL (8.4-25.7); Bilirubin, Total 0.6 mg/dL (0.2-1.2); Calc. Creatinine Clearance 0 mL/min (70-130); Calcium 8.9 mg/dL (7.8-10.44); Carbon Dioxide 26 mmol/L (23-31); Chloride 105 mmol/L (98-107); Estimated GFR 62; Globulin 3.4 g/dL (2.4-3.5); Glucose 95 mg/dL (83-110); Potassium 4.3 mmol/L (3.5-5.1); Protein, Total 7.2 g/dL (5.8-8.1); Sodium 138 mmol/L (136-145)
[2022-04-30] MEDS ORDERED: Bisacodyl 5 MG TAB PO PRN (01:30)
[2022-04-30] MEDS ORDERED: Ondansetron PF 4 MG/2 ML Vial IVP PRN (01:30)
[2022-04-30] MEDS ORDERED: Acetaminophen 325 MG TAB PO PRN (01:30)
[2022-04-30] MEDS ORDERED: Senokot S 8.6-50 MG TAB PO PRN (01:30)
[2022-04-30] MEDS ORDERED: Ondansetron ODT 4 MG TAB PO PRN (01:30)
[2022-04-30] MEDS ORDERED: HYDROcodone/Acetaminophen 5/325 mg Tablet PO PRN (01:30)
[2022-04-30 02:06] VITALS: BMI 31.8
[2022-04-30 02:44] LABS: Iron 15 ug/dL (65-175); Iron Binding Capacity, Total 485 mcg/dL (261-462)
[2022-04-30 02:54] LABS: ALT (SGPT) 9 U/L (8-55); AST (SGOT) 19 U/L (5-34); Albumin 4.1 g/dL (3.4-4.8); Alkaline Phosphatase 110 U/L (40-110); Anion Gap 14 mmol/L (10-20); BUN (Urea Nitrogen) 19 mg/dL (8.4-25.7); Bilirubin, Total 0.9 mg/dL (0.2-1.2); Calc. Creatinine Clearance 57 mL/min (70-130); Calcium 9.3 mg/dL (7.8-10.44); Carbon Dioxide 21 mmol/L (23-31); Chloride 105 mmol/L (98-107); Estimated GFR 64; Glucose 89 mg/dL (83-110); Potassium 4.3 mmol/L (3.5-5.1); Protein, Total 8.1 g/dL (5.8-8.1); Sodium 136 mmol/L (136-145)
[2022-04-30 05:37] LABS: Bacteria/HPF None Seen HPF (None Seen); Bilirubin Negative (Negative); Blood, Urine Negative (Negative); Clarity Clear (Clear); Glucose, Urine (Dipstick) Normal (Negative); Ketone, Urine Negative (Negative); Leukocyte Negative Leu/uL (Negative); Nitrite Negative (Negative); Protein, Urine (Dipstick) Negative (Neg-Trace); RBC/HPF 0-3 HPF (0-3); Specific Gravity, Urine 1.017 (1.002-1.036); Squamous Epithelial None Seen HPF (0-3); Urobilinogen Normal mg/dL (Less than 2); WBC/HPF 0-3 HPF (0-3); pH, Urine 5.5 (5.0-9.0)
[2022-04-30 06:36] LABS: Reticulocyte Count 1.5 % (0.5-1.5)
[2022-04-30 06:43] LABS: #Basophils 0.1 thou/uL (0.0-0.2); #Eosinphils 0.7 thou/uL (0.0-0.7); #Lymphocytes 2.8 thou/uL (1.20-3.40); #Monocytes 1.7 thou/uL (0.11-0.59); #Neutrophils 7.7 thou/uL (1.40-6.50); %Basophils 0.5 % (0.0-1.0); %Eosinophils 5.7 % (0.0-10.0); %Lymphocytes 21.8 % (21.0-51.0); %Monocytes 12.8 % (0.0-10.0); %Neutrophils 59.2 % (42.0-75.0); Hemoglobin 8.4 g/dL (14.0-18.0); Mean Corpuscular HGB CONC 29.7 g/dL (32.0-36.0); Mean Corpuscular Hemoglobin 21.8 pg (27.0-31.0); Mean Corpuscular Volume 73.3 fL (78.0-98.0); Mean Platelet Volume 9.7 fL (7.4-10.4); Platelet Count 256 thou/uL (130-400); RBC Distribution Width 20.5 % (11.5-14.5); Red Blood Cell (RBC) Count 3.83 mill/uL (4.70-6.10)
[2022-04-30] MEDS: Gabapentin 100 MG CAP PO SCH ×2 (09:48→21:36)
[2022-04-30] MEDS: Allopurinol 300 MG TAB PO SCH (09:48)
[2022-04-30] MEDS: Pantoprazole 40 MG VIAL IVP SCH ×2 (09:52→21:37)
[2022-04-30] MEDS ORDERED: Furosemide 40 MG/4 ML VIAL SLOW IVP SCH (12:15)
[2022-04-30] MEDS ORDERED: Amlodipine 10 MG TAB PO SCH (14:00)
[2022-04-30] MEDS ORDERED: GoLYTELY 4,000 ml Bottle PO SCH (17:15)
[2022-04-30 17:24] LABS: Hemoglobin 9.8 g/dL (14.0-18.0)
[2022-04-30] MEDS: hydrOXYzine 25 MG TAB PO SCH (21:37)
[2022-05-01] MEDS ORDERED: Metoprolol Tartrate 5 MG/5 ML VIAL IVP PRN (01:03)
[2022-05-01] MEDS ORDERED: Ketamine 50 MG/ML (10ML VIAL) ONE (11:45)
[2022-05-01] MEDS ORDERED: PROPOFOL 200 MG/20 ML VIAL ONE (11:55)
[2022-05-01] MEDS ORDERED: Promethazine HCl 25 MG/ML VIAL IVPB PRN (12:57)
[2022-05-01] MEDS ORDERED: Promethazine HCl 25 MG/ML VIAL IM PRN (12:57)
[2022-05-01] MEDS ORDERED: Ondansetron HCl/PF 4 MG/2 ML Vial IVP PRN (12:57)
[2022-05-01] MEDS: Allopurinol 300 MG TAB PO SCH (16:17)
[2022-05-01] MEDS: Amlodipine 10 MG TAB PO SCH (16:17)
[2022-05-01] MEDS: Pantoprazole 40 MG VIAL IVP SCH ×2 (16:17→21:13)
[2022-05-01] MEDS: Gabapentin 100 MG CAP PO SCH ×2 (16:17→21:10)
[2022-05-01] MEDS ORDERED: Atorvastatin Calcium 40 MG TAB PO SCH (21:00)
[2022-05-01] MEDS: hydrOXYzine 25 MG TAB PO SCH (21:11)
[2022-05-02 03:03] LABS: Ferritin 10.87 ng/mL (22-322)
[2022-05-02 08:24] LABS: #Eosinphils 0.8 thou/uL (0.0-0.7); #Lymphocytes 2.4 thou/uL (1.20-3.40); #Monocytes 1.8 thou/uL (0.11-0.59); #Neutrophils 8.2 thou/uL (1.40-6.50); %Basophils 0.3 % (0.0-1.0); %Monocytes 13.8 % (0.0-10.0); %Neutrophils 61.9 % (42.0-75.0); Hemoglobin 9.7 g/dL (14.0-18.0); Mean Corpuscular HGB CONC 28.8 g/dL (32.0-36.0); Mean Corpuscular Hemoglobin 21.2 pg (27.0-31.0); Mean Corpuscular Volume 73.6 fL (78.0-98.0); Mean Platelet Volume 9.4 fL (7.4-10.4); Platelet Count 289 thou/uL (130-400); Red Blood Cell (RBC) Count 4.58 mill/uL (4.70-6.10); White Blood Cell (WBC) Count 13.2 thou/uL (4.8-10.8)
[2022-05-02 08:35] LABS: ALT (SGPT) 11 U/L (8-55); AST (SGOT) 22 U/L (5-34); Albumin 3.5 g/dL (3.4-4.8); Alkaline Phosphatase 106 U/L (40-110); Anion Gap 13 mmol/L (10-20); BUN (Urea Nitrogen) 14 mg/dL (8.4-25.7); Bilirubin, Total 1.1 mg/dL (0.2-1.2); Calc. Creatinine Clearance 58 mL/min (70-130); Carbon Dioxide 28 mmol/L (23-31); Chloride 102 mmol/L (98-107); Estimated GFR 66; Globulin 3.5 g/dL (2.4-3.5); Glucose 102 mg/dL (83-110); Potassium 3.8 mmol/L (3.5-5.1); Sodium 139 mmol/L (136-145)
[2022-05-02] MEDS: Gabapentin 100 MG CAP PO SCH (09:21)
[2022-05-02] MEDS: Allopurinol 300 MG TAB PO SCH (09:22)
[2022-05-02] MEDS: Amlodipine 10 MG TAB PO SCH (09:22)
[2022-05-02] MEDS: Pantoprazole 40 MG VIAL IVP SCH (09:27)
[2022-05-02 10:15] LABS: Hypochromia SLIGHT = 6-15 cells (100X) (0-5/hpf); MDiff Complete? YES; Microcytosis SLIGHT = 6-15 cells (100X) (0-5/hpf); Platelet Morphology Comment Appears Adequate; Polychromasia SLIGHT = 2-3 cells (100X) (0-2/hpf)
[2022-05-02 12:03] VITALS: BP 118/68; TEMP 98
== END 2022-05-02 14:45 | disposition home or self-care (01) | DRG 812 ==
LOC: ERS 21:50 → 2NO 23:11
PROVIDERS: ADMIT Student in an Organized Health Care Education/Training Program; ATTEND Internal Medicine
PROC: 30233N1 Transfusion of Nonautologous Red Blood Cells into Peripheral Vein, Percutaneous Approach (ICD-10-PCS; principal; 2022-04-30)
PROC: 0DB98ZX Excision of Duodenum, Via Natural or Artificial Opening Endoscopic, Diagnostic (ICD-10-PCS; 2022-05-01)
PROC: 0DJD8ZZ Inspection of Lower Intestinal Tract, Via Natural or Artificial Opening Endoscopic (ICD-10-PCS; 2022-05-01)
DX: D62 Acute posthemorrhagic anemia (principal); E78.00 Pure hypercholesterolemia, unspecified; I10 Essential (primary) hypertension; I48.0 Paroxysmal atrial fibrillation; I44.0 Atrioventricular block, first degree; D50.9 Iron deficiency anemia, unspecified; K44.9 Diaphragmatic hernia without obstruction or gangrene; K25.9 Gastric ulcer, unspecified as acute or chronic, without hemorrhage or perforation; K64.8 Other hemorrhoids; K57.30 Diverticulosis of large intestine without perforation or abscess without bleeding; Z20.822 Contact with and (suspected) exposure to COVID-19; Z86.73 Personal history of transient ischemic attack (TIA), and cerebral infarction without residual deficits; Z79.51 Long term (current) use of inhaled steroids; Z79.82 Long term (current) use of aspirin; Z79.899 Other long term (current) drug therapy
CPT/HCPCS: 36415; 36430; 71045; 80053; 81001; 82274; 82607; 82728; 83010; 83540; 83550; 83615; 83880; 84155; 84165; 84484; 85025; 85046; 85060; 86850; 86900; 86901; 88305; 93005; 94640; C9113; J1940; J2704; J7620; P9016; U0003; U0005

== ENCOUNTER 2022-08-03 08:09 | Outpatient (CLI) | payer MEDICARE ==
[2022-08-03 10:12] LABS: Bilirubin Neg (Negative); Blood, Urine Negative (Negative); Clarity Clear (Clear); Glucose, Urine (Dipstick) Normal (Negative); Ketone, Urine Negative (Negative); Leukocyte 100 (Negative); Nitrite Negative (Negative); Protein, Urine (Dipstick) 30 mg/dl (Neg-Trace); Urobilinogen Normal mg/dL (Less than 2)
[2022-08-03 10:23] LABS: Hemoglobin 13.5 g/dL (13.5-17.5); Mean Corpuscular HGB CONC 32.1 g/dL (32.0-36.0); Mean Corpuscular Hemoglobin 29.3 pg (27.0-33.0); Mean Corpuscular Volume 91.1 fl (81.2-95.1); Mean Platelet Volume 10.6 fl (7.4-10.4); Platelet Count 208 10x3/uL (150-450); RBC Distribution Width 19.2 % (11.5-14.5); Red Blood Cell (RBC) Count 4.61 10x6/uL (4.32-5.72); White Blood Cell (WBC) Count 7.6 10x3/uL (3.5-10.5)
[2022-08-03 10:37] LABS: INR-International Normal Ratio 1.1; PTT 27.6 sec (22.0-33.0)
[2022-08-03 10:40] LABS: ALT (SGPT) 15 U/L (8-55); AST (SGOT) 24 U/L (5-34); Albumin 3.8 g/dL (3.4-4.8); Alkaline Phosphatase 103 U/L (40-110); Anion Gap 14 mmol/L (10-20); BUN (Urea Nitrogen) 24 mg/dL (8.4-25.7); Bilirubin, Total 0.7 mg/dL (0.2-1.2); Calc. Creatinine Clearance 0 mL/min (70-130); Calcium 9.3 mg/dL (7.8-10.44); Carbon Dioxide 26 mmol/L (23-31); Chloride 104 mmol/L (98-107); Estimated GFR 44; Globulin 3.4 g/dL (2.4-3.5); Glucose 155 mg/dL (83-110); Potassium 4.7 mmol/L (3.5-5.1); Protein, Total 7.2 g/dL (5.8-8.1); Sodium 139 mmol/L (136-145)
== END 2022-08-03 08:10 | disposition home or self-care (01) ==
LOC: LABBT 08:09
PROVIDERS: ATTEND Internal Medicine Cardiovascular Disease
DX: Z01.818 Encounter for other preprocedural examination (principal); I48.19 Other persistent atrial fibrillation; I63.9 Cerebral infarction, unspecified
CPT/HCPCS: 80053; 81003; 85027; 85610; 85730; 86850; 86900; 86901; 93005; 93010

== ENCOUNTER 2022-08-03 09:00 | Inpatient (IN) | payer MEDICARE ==
[2022-08-03 10:12] LABS: Bilirubin Neg (Negative); Blood, Urine Negative (Negative); Clarity Clear (Clear); Glucose, Urine (Dipstick) Normal (Negative); Ketone, Urine Negative (Negative); Leukocyte 100 (Negative); Nitrite Negative (Negative); Protein, Urine (Dipstick) 30 mg/dl (Neg-Trace); Urobilinogen Normal mg/dL (Less than 2)
[2022-08-03 10:23] LABS: Hemoglobin 13.5 g/dL (13.5-17.5); Mean Corpuscular HGB CONC 32.1 g/dL (32.0-36.0); Mean Corpuscular Hemoglobin 29.3 pg (27.0-33.0); Mean Corpuscular Volume 91.1 fl (81.2-95.1); Mean Platelet Volume 10.6 fl (7.4-10.4); Platelet Count 208 10x3/uL (150-450); RBC Distribution Width 19.2 % (11.5-14.5); Red Blood Cell (RBC) Count 4.61 10x6/uL (4.32-5.72); White Blood Cell (WBC) Count 7.6 10x3/uL (3.5-10.5)
[2022-08-03 10:37] LABS: INR-International Normal Ratio 1.1; PTT 27.6 sec (22.0-33.0)
[2022-08-03 10:40] LABS: ALT (SGPT) 15 U/L (8-55); AST (SGOT) 24 U/L (5-34); Albumin 3.8 g/dL (3.4-4.8); Alkaline Phosphatase 103 U/L (40-110); Anion Gap 14 mmol/L (10-20); BUN (Urea Nitrogen) 24 mg/dL (8.4-25.7); Bilirubin, Total 0.7 mg/dL (0.2-1.2); Calc. Creatinine Clearance 0 mL/min (70-130); Calcium 9.3 mg/dL (7.8-10.44); Carbon Dioxide 26 mmol/L (23-31); Chloride 104 mmol/L (98-107); Estimated GFR 44; Globulin 3.4 g/dL (2.4-3.5); Glucose 155 mg/dL (83-110); Potassium 4.7 mmol/L (3.5-5.1); Protein, Total 7.2 g/dL (5.8-8.1); Sodium 139 mmol/L (136-145)
[2022-08-05 09:46] VITALS: BMI 26.6
[2022-08-08] MEDS ORDERED: Heparin 10,000 UNITS/ 10 ML VIAL ONE (09:20)
[2022-08-08] MEDS ORDERED: CEFAZOLIN 1 GM VIAL ONE (09:20)
[2022-08-08] MEDS ORDERED: Protamine Sulfate 50 MG/5 ML VIAL ONE (09:20)
[2022-08-08] MEDS ORDERED: FENTANYL 50 MCG/ML 1 ML VIAL ONE (13:19)
[2022-08-08] MEDS ORDERED: PROPOFOL 200 MG/20 ML VIAL ONE (13:24)
[2022-08-08] MEDS ORDERED: Rocuronium Bromide 10 MG/ML (10ML VIAL) ONE (13:24)
[2022-08-08] MEDS ORDERED: Ondansetron PF 4 MG/2 ML Vial ONE (13:24)
[2022-08-08] MEDS ORDERED: SUGAMMADEX SODIUM 200 MG/2 ML VIAL ONE (13:56)
[2022-08-08] MEDS ORDERED: hydrALAZINE 20 MG/ML VIAL ONE (16:07)
== END 2022-08-08 16:43 | disposition home or self-care (01) | DRG 274 ==
LOC: SURG A 08-08 08:44 → EDSTATUS 08-08 09:00
PROVIDERS: ADMIT Internal Medicine Cardiovascular Disease; ATTEND Internal Medicine Cardiovascular Disease
PROC: 02L73DK Occlusion of Left Atrial Appendage with Intraluminal Device, Percutaneous Approach (ICD-10-PCS; principal; 2022-08-08)
PROC: B24BZZ4 Ultrasonography of Heart with Aorta, Transesophageal (ICD-10-PCS; 2022-08-08)
DX: I48.19 Other persistent atrial fibrillation (principal); Z00.6 Encounter for examination for normal comparison and control in clinical research program; Z20.822 Contact with and (suspected) exposure to COVID-19; I73.9 Peripheral vascular disease, unspecified; I10 Essential (primary) hypertension; D50.9 Iron deficiency anemia, unspecified; Z79.01 Long term (current) use of anticoagulants; Z79.899 Other long term (current) drug therapy; Z86.73 Personal history of transient ischemic attack (TIA), and cerebral infarction without residual deficits
CPT/HCPCS: 36415; 80053; 81003; 85027; 85610; 85730; 86850; 86900; 86901; 86922; 93312; J0360; J0690; J1644; J2405; J2704; J2720; J3010

== ENCOUNTER 2022-08-16 15:10 | Emergency (ER) | payer MEDICARE, OTHER ==
[2022-08-16] MEDS ORDERED: Pantoprazole 40 MG VIAL ONE (15:51)
[2022-08-16] MEDS ORDERED: Acetaminophen 500 MG TAB ONE (15:51)
[2022-08-16 16:01] LABS: #Eosinphils 0.2 thou/uL (0.0-0.7); #Lymphocytes 1.8 thou/uL (1.20-3.40); #Monocytes 1.5 thou/uL (0.11-0.59); #Neutrophils 12.4 thou/uL (1.40-6.50); %Basophils 0.1 % (0.0-1.0); %Lymphocytes 11.3 % (21.0-51.0); %Monocytes 9.4 % (0.0-10.0); %Neutrophils 78.3 % (42.0-75.0); Hemoglobin 14.9 g/dL (14.0-18.0); Mean Corpuscular HGB CONC 31.4 g/dL (32.0-36.0); Mean Corpuscular Hemoglobin 30.3 pg (27.0-31.0); Mean Corpuscular Volume 96.5 fl (78.0-98.0); Mean Platelet Volume 9.5 fL (7.4-10.4); Platelet Count 201 10x3/uL (130-400); RBC Distribution Width 17.3 % (11.5-14.5); Red Blood Cell (RBC) Count 4.91 mill/uL (4.70-6.10); White Blood Cell (WBC) Count 15.8 10x3/uL (4.8-10.8)
[2022-08-16 16:30] LABS: ALT (SGPT) 18 U/L (8-55); AST (SGOT) 37 U/L (5-34); Albumin 3.9 g/dL (3.4-4.8); Alkaline Phosphatase 121 U/L (40-110); Anion Gap 16 mmol/L (10-20); BUN (Urea Nitrogen) 19 mg/dL (8.4-25.7); Calc. Creatinine Clearance 0 mL/min (70-130); Calcium 9.4 mg/dL (7.8-10.44); Carbon Dioxide 21 mmol/L (23-31); Chloride 100 mmol/L (98-107); Estimated GFR 45; Globulin 4.4 g/dL (2.4-3.5); Glucose 121 mg/dL (83-110); Lipase 28 U/L (8-78); Potassium 5.1 mmol/L (3.5-5.1); Protein, Total 8.3 g/dL (5.8-8.1); Sodium 132 mmol/L (136-145)
[2022-08-16 18:14] LABS: Bacteria/HPF None Seen HPF (None Seen); Bilirubin Negative (Negative); Blood, Urine 3+ (Negative); Clarity Clear (Clear); Glucose, Urine (Dipstick) Normal (Negative); Ketone, Urine Negative (Negative); Leukocyte Negative Leu/uL (Negative); Nitrite Negative (Negative); Protein, Urine (Dipstick) 20 mg/dL (Neg-Trace); RBC/HPF Greater than 50 HPF (0-3); Specific Gravity, Urine 1.026 (1.002-1.036); Squamous Epithelial None Seen HPF (0-3); Urobilinogen Normal mg/dL (Less than 2); WBC/HPF None Seen HPF (0-3); pH, Urine 7.5 (5.0-9.0)
== END 2022-08-16 18:56 | disposition home or self-care (01) ==
LOC: ERS 15:10
DX: N13.2 Hydronephrosis with renal and ureteral calculous obstruction (principal); N28.1 Cyst of kidney, acquired; I12.9 Hypertensive chronic kidney disease with stage 1 through stage 4 chronic kidney disease, or unspecified chronic kidney disease; N18.9 Chronic kidney disease, unspecified; R79.89 Other specified abnormal findings of blood chemistry; I48.91 Unspecified atrial fibrillation; E78.00 Pure hypercholesterolemia, unspecified; Z79.01 Long term (current) use of anticoagulants; Z79.899 Other long term (current) drug therapy
CPT/HCPCS: 36415; 74177; 80053; 81003; 81015; 83690; 84484; 85025; 87086; 93005; 96374; C9113

== ENCOUNTER 2022-11-09 10:00 | Inpatient (IN) | payer MEDICARE ==
[2022-11-09 16:28] LABS: Bilirubin Neg (Negative); Blood, Urine Negative (Negative); Clarity Clear (Clear); Glucose, Urine (Dipstick) Normal (Negative); Ketone, Urine Negative (Negative); Leukocyte Negative (Negative); Nitrite Negative (Negative); Protein, Urine (Dipstick) 15 mg/dl (Neg-Trace); Specific Gravity, Urine 1.015 (1.005-1.030); Urobilinogen Normal mg/dL (Less than 2)
[2022-11-09 16:29] LABS: Hemoglobin 12.8 g/dL (13.5-17.5); Mean Corpuscular HGB CONC 31.6 g/dL (32.0-36.0); Mean Corpuscular Volume 98.1 fl (81.2-95.1); Mean Platelet Volume 10.6 fl (7.4-10.4); Platelet Count 214 10x3/uL (150-450); RBC Distribution Width 14.6 % (11.5-14.5); Red Blood Cell (RBC) Count 4.13 10x6/uL (4.32-5.72); White Blood Cell (WBC) Count 10.1 10x3/uL (3.5-10.5)
[2022-11-09 16:42] LABS: INR-International Normal Ratio 1.1; PTT 28.4 sec (22.0-33.0); Prothrombin Time 11.8 sec (9.5-12.1)
[2022-11-09 16:44] LABS: ALT (SGPT) 17 U/L (8-55); AST (SGOT) 29 U/L (5-34); Albumin 3.9 g/dL (3.4-4.8); Alkaline Phosphatase 92 U/L (40-110); Anion Gap 15 mmol/L (10-20); BUN (Urea Nitrogen) 17 mg/dL (8.4-25.7); Bilirubin, Total 0.9 mg/dL (0.2-1.2); Calc. Creatinine Clearance 0 mL/min (70-130); Calcium 9.4 mg/dL (7.8-10.44); Carbon Dioxide 25 mmol/L (23-31); Chloride 104 mmol/L (98-107); Estimated GFR 69; Globulin 3.5 g/dL (2.4-3.5); Glucose 83 mg/dL (83-110); Potassium 4.9 mmol/L (3.5-5.1); Protein, Total 7.4 g/dL (5.8-8.1); Sodium 139 mmol/L (136-145)
[2022-11-15 11:57] VITALS: BMI 26.6
[2022-11-16] MEDS ORDERED: Heparin 10,000 UNITS/ 10 ML VIAL ONE (08:30)
[2022-11-16] MEDS ORDERED: Protamine Sulfate 50 MG/5 ML VIAL ONE ×2 (08:30→11:04)
[2022-11-16] MEDS ORDERED: CEFAZOLIN 1 GM VIAL ONE (08:30)
[2022-11-16] MEDS ORDERED: FENTANYL 50 MCG/ML 1 ML VIAL ONE (09:11)
[2022-11-16] MEDS ORDERED: SUGAMMADEX SODIUM 200 MG/2 ML VIAL ONE (09:11)
[2022-11-16] MEDS ORDERED: Rocuronium Bromide 10 MG/ML (10ML VIAL) ONE (09:25)
[2022-11-16] MEDS ORDERED: ePHEDrine 50 MG/ML VIAL ONE (09:25)
[2022-11-16] MEDS ORDERED: Dexamethasone 20 MG/5 ML VIAL ONE (09:25)
[2022-11-16] MEDS ORDERED: Lidocaine 1% PF 5 ML VIAL ONE (09:25)
[2022-11-16] MEDS ORDERED: PROPOFOL 200 MG/20 ML VIAL ONE (09:25)
[2022-11-16] MEDS ORDERED: Ondansetron PF 4 MG/2 ML Vial ONE (09:25)
[2022-11-16] MEDS ORDERED: Iopamidol 370 76% 100 ML VIAL ONE (11:41)
[2022-11-16] MEDS ORDERED: Acetaminophen/Codeine 30-300mg Tablet PO PRN ×2 (11:52→11:53)
[2022-11-16] MEDS ORDERED: HYDROcodone/Acetaminophen 5/325 mg Tablet PO PRN ×2 (11:53→11:54)
[2022-11-16 13:50] VITALS: BP 169/87; TEMP 97.6
[2022-11-16 13:57] LABS: SARS-CoV-2 NAA Rapid Test Not Detected (NotDetected)
[2022-11-16] MEDS ORDERED: Carvedilol 3.125 MG TAB PO SCH (21:00)
[2022-11-16] MEDS ORDERED: Apixaban 5 MG TAB PO SCH (21:00)
[2022-11-16] MEDS ORDERED: Atorvastatin Calcium 40 MG TAB PO SCH (21:00)
[2022-11-16] MEDS ORDERED: Gabapentin 300 MG CAP PO SCH (21:00)
[2022-11-16] MEDS ORDERED: hydrOXYzine 25 MG TAB PO SCH (21:00)
[2022-11-16] MEDS ORDERED: Aspirin 81 mg Enteric Coated Tablet PO SCH (21:00)
[2022-11-16] MEDS ORDERED: Acetaminophen 325 MG TAB PO SCH (21:00)
[2022-11-17] MEDS ORDERED: Ferrous Sulfate 325 MG TAB PO SCH (08:00)
[2022-11-17] MEDS ORDERED: Fish Oil 1,000 MG CAP PO SCH (09:00)
[2022-11-17] MEDS ORDERED: Allopurinol 300 MG TAB PO SCH (09:00)
[2022-11-17] MEDS ORDERED: Multivit, Therapeutic 1 TAB PO SCH (09:00)
[2022-11-17] MEDS ORDERED: Calcium Polycarbophil 625 MG TAB PO SCH (09:00)
== END 2022-11-16 18:30 | disposition home or self-care (01) | DRG 274 ==
LOC: SURG A 11-16 07:01 → 2NO 11-16 14:03
PROVIDERS: ADMIT Internal Medicine Cardiovascular Disease; ATTEND Internal Medicine Cardiovascular Disease
PROC: 02L73DK Occlusion of Left Atrial Appendage with Intraluminal Device, Percutaneous Approach (ICD-10-PCS; principal; 2022-11-16)
PROC: B246ZZ4 Ultrasonography of Right and Left Heart, Transesophageal (ICD-10-PCS; 2022-11-16)
DX: I48.0 Paroxysmal atrial fibrillation (principal); Z00.6 Encounter for examination for normal comparison and control in clinical research program; I10 Essential (primary) hypertension; E78.5 Hyperlipidemia, unspecified; D64.9 Anemia, unspecified; I73.9 Peripheral vascular disease, unspecified; E66.9 Obesity, unspecified; M10.9 Gout, unspecified; Z79.899 Other long term (current) drug therapy; Z20.822 Contact with and (suspected) exposure to COVID-19; Z86.73 Personal history of transient ischemic attack (TIA), and cerebral infarction without residual deficits; Z87.19 Personal history of other diseases of the digestive system; Z98.890 Other specified postprocedural states; I25.2 Old myocardial infarction; Z79.01 Long term (current) use of anticoagulants; Z68.26 Body mass index [BMI] 26.0-26.9, adult; I34.0 Nonrheumatic mitral (valve) insufficiency
CPT/HCPCS: 33340; 80053; 81003; 85027; 85347; 85610; 85730; 86850; 86900; 86901; 93306; 93312; C1759; C1760; C1769; C1894; J0690; J1100; J1644; J2405; J2704; J2720; J3010; J3490; Q9967; U0002

== ENCOUNTER 2022-11-09 15:02 | Outpatient (CLI) | payer MEDICARE, OTHER ==
[2022-11-09 16:28] LABS: Bilirubin Neg (Negative); Blood, Urine Negative (Negative); Clarity Clear (Clear); Glucose, Urine (Dipstick) Normal (Negative); Ketone, Urine Negative (Negative); Leukocyte Negative (Negative); Nitrite Negative (Negative); Protein, Urine (Dipstick) 15 mg/dl (Neg-Trace); Specific Gravity, Urine 1.015 (1.005-1.030); Urobilinogen Normal mg/dL (Less than 2)
[2022-11-09 16:29] LABS: Hemoglobin 12.8 g/dL (13.5-17.5); Mean Corpuscular HGB CONC 31.6 g/dL (32.0-36.0); Mean Corpuscular Volume 98.1 fl (81.2-95.1); Mean Platelet Volume 10.6 fl (7.4-10.4); Platelet Count 214 10x3/uL (150-450); RBC Distribution Width 14.6 % (11.5-14.5); Red Blood Cell (RBC) Count 4.13 10x6/uL (4.32-5.72); White Blood Cell (WBC) Count 10.1 10x3/uL (3.5-10.5)
[2022-11-09 16:42] LABS: INR-International Normal Ratio 1.1; PTT 28.4 sec (22.0-33.0); Prothrombin Time 11.8 sec (9.5-12.1)
[2022-11-09 16:44] LABS: ALT (SGPT) 17 U/L (8-55); AST (SGOT) 29 U/L (5-34); Albumin 3.9 g/dL (3.4-4.8); Alkaline Phosphatase 92 U/L (40-110); Anion Gap 15 mmol/L (10-20); BUN (Urea Nitrogen) 17 mg/dL (8.4-25.7); Bilirubin, Total 0.9 mg/dL (0.2-1.2); Calc. Creatinine Clearance 0 mL/min (70-130); Calcium 9.4 mg/dL (7.8-10.44); Carbon Dioxide 25 mmol/L (23-31); Chloride 104 mmol/L (98-107); Estimated GFR 69; Globulin 3.5 g/dL (2.4-3.5); Glucose 83 mg/dL (83-110); Potassium 4.9 mmol/L (3.5-5.1); Protein, Total 7.4 g/dL (5.8-8.1); Sodium 139 mmol/L (136-145)
== END 2022-11-09 15:03 | disposition home or self-care (01) ==
LOC: LABBT 15:02
PROVIDERS: ATTEND Internal Medicine Cardiovascular Disease
DX: Z01.818 Encounter for other preprocedural examination (principal); I48.19 Other persistent atrial fibrillation
CPT/HCPCS: 80053; 81003; 85027; 85610; 85730; 86850; 86900; 86901; 93005; 93010

== ENCOUNTER 2023-01-06 07:30 | Day surgery (SDC) | payer MEDICARE ==
[2023-01-04 15:22] VITALS: BMI 27.4
[2023-01-06 08:06] LABS: Hemoglobin 14.5 g/dL (14.0-18.0); Mean Corpuscular HGB CONC 31.1 g/dL (32.0-36.0); Mean Corpuscular Hemoglobin 31.2 pg (27.0-31.0); Mean Platelet Volume 7.9 fL (7.4-10.4); Platelet Count 214 10x3/uL (130-400); RBC Distribution Width 12.1 % (11.5-14.5); Red Blood Cell (RBC) Count 4.64 mill/uL (4.70-6.10); White Blood Cell (WBC) Count 12.1 10x3/uL (4.8-10.8)
[2023-01-06 08:30] LABS: Anion Gap 16 mmol/L (10-20); BUN (Urea Nitrogen) 21 mg/dL (8.4-25.7); Calc. Creatinine Clearance 57 mL/min (70-130); Calcium 9.4 mg/dL (7.8-10.44); Carbon Dioxide 23 mmol/L (23-31); Chloride 105 mmol/L (98-107); Estimated GFR 66; Glucose 92 mg/dL (83-110); Potassium 4.5 mmol/L (3.5-5.1); Sodium 139 mmol/L (136-145)
[2023-01-06] MEDS ORDERED: PROPOFOL 200 MG/20 ML VIAL ONE (08:58)
[2023-01-06] MEDS ORDERED: Lidocaine 1% PF 5 ML VIAL ONE (08:58)
== END 2023-01-06 12:04 | disposition home or self-care (01) ==
LOC: SDC 07:30
PROVIDERS: ATTEND Internal Medicine Cardiovascular Disease
PROC: B246ZZ4 Ultrasonography of Right and Left Heart, Transesophageal (ICD-10-PCS; principal; 2023-01-06)
DX: I48.19 Other persistent atrial fibrillation (principal); D50.9 Iron deficiency anemia, unspecified; I34.0 Nonrheumatic mitral (valve) insufficiency; I73.9 Peripheral vascular disease, unspecified; I10 Essential (primary) hypertension; Z86.73 Personal history of transient ischemic attack (TIA), and cerebral infarction without residual deficits; Z79.82 Long term (current) use of aspirin; Z79.899 Other long term (current) drug therapy; Z95.818 Presence of other cardiac implants and grafts
CPT/HCPCS: 36415; 80048; 85027; 93312; J2704